=== PATIENT | male | born 1945 | race Caucasian/White ===

== ENCOUNTER 2017-01-24 07:00 | Inpatient (IN) ==
[~2017-01-24 07:00] MED LIST: DEXTROSE 50% 25 GM/50 ML VIAL IV PRN; GLUCAGON 1 MG VIAL IM PRN
[2017-01-24] MEDS: ALBUTEROL/IPRATROPIUM 3 ML NEB RESP TX SCH ×5 (08:30→19:55)
[2017-01-24 09:02] LABS: Basophils # 0.1 10*3/uL (0.0-0.2); Basophils % 0.6 % (0.0-0.8); Eosinophils # 0.2 10*3/uL (0.0-0.87); Eosinophils % 2.6 % (0.00-10.9); Hematocrit 44.9 VOL% (42.0-52.0); Hemoglobin 14.9 GM/DL (14.0-18.0); Immature Granulocytes % 0.5 %; Immature Granulocytes Absolute 0.04 #; Lymphocytes # 1.8 10*3/uL (1.4-4.0); Mean Corpuscular HGB Conc 33.2 GM/DL (32-36); Mean Corpuscular Hemoglobin 31 PG (27-34); Mean Corpuscular Volume 94.3 FL (87-102); Mean Platelet Volume 10.7 FL (9.6-12.0); Monocytes # 0.6 10*3/uL (0.11-0.8); Monocytes % 7.1 % (1.7-12.7); Neutrophils # 5.4 10*3/uL (1.4-7.4); Neutrophils % 67.2 % (38.7-73.9); Platelet Count 229 T/CUMM (130-400); Red Blood Count 4.76 MC/CUMM (3.8-5.5); Red Cell Distribution Width 13.9 % (9.3-17.3)
[2017-01-24 09:42] LABS: Albumin 3.8 G/DL (3.4-5.0); Bilirubin,Total 0.9 MG/DL (0.2-1.0); Calcium 8.9 MG/DL (8.5-10.1); Free T4 (Free Thyroxine) 0.97 NG/DL (0.76-1.46); Magnesium 2.1 MG/DL (1.8-2.4); Osmolality,Calculated 277.7 MOS/KG (273-304); Potassium 4.9 MMOL/L (3.5-5.1); Thyroid Stimulating Hormone 1.71 uIU/ml (0.358-3.74); Total Protein 7.2 G/DL (6.4-8.3)
[2017-01-24] MEDS ORDERED: MEROPENEM 1,000 MG in SYRINGE 1 EACH IV SCH (10:00)
[2017-01-24] MEDS: INSULIN REGULAR 100 UNIT/ML SUBCUT SCH ×4 (11:28→21:59)
[2017-01-24] MEDS: MEROPENEM 1,000 MG in SYRINGE 1 EACH IV SCH ×2 (11:40→20:12)
[2017-01-24] MEDS: AZITHROMYCIN 250 MG TABLET PO SCH (11:41)
[2017-01-24] MEDS: methylPREDNISolone SOD SUC 40 MG/1 ML VIAL IV SCH ×2 (11:41→22:02)
[2017-01-24] MEDS: BENZONATATE 100 MG CAPSULE PO SCH ×2 (11:41→22:02)
[2017-01-24] MEDS: SODIUM CHLORIDE 0.45% 1,000 ML IV SCH ×2 (11:42→11:43)
[2017-01-24] MEDS: DORNASE ALFA 2.5 MG/2.5 ML VIAL RESP TX SCH ×2 (12:16→20:02)
[2017-01-24] MEDS: PANTOPRAZOLE 40 MG TABLET PO SCH (13:08)
[2017-01-24] MEDS ORDERED: BENZONATATE 100 MG CAPSULE PO PRN (13:30)
[2017-01-24 15:24] LABS: Apearance,Urine CLEAR (Clear); Bilirubin,Urine Negative (Negative); Blood, Urine Negative (Negative); Glucose,Urine (UA) Negative (Negative); Ketones,Urine Negative (Negative); Mucus,Urine Occasional /LPF (Occasional); Nitrite,Urine Negative (Negative); Protein,Urine Negative; RBC,Urine <1 /HPF (0-4); Urine Color Yellow (Yellow); Urine Specific Gravity 1.016 (1.001-1.035); Urine Urobilinogen < 2.0 EU/DL (0.2-1.0); WBC,Urine 1 /HPF (0-6)
[2017-01-24] MEDS: FLUTICASONE/SALMETEROL 500-50 DISKUS 14 DOSE INH SCH (21:59)
[2017-01-24] MEDS: PRAVASTATIN 40 MG TABLET PO SCH (22:00)
[2017-01-24] MEDS: LISINOPRIL 2.5 MG TABLET PO SCH (22:00)
[2017-01-24] MEDS: MULTIVITAMIN (BEROCCA) TABLET PO SCH (22:01)
[2017-01-24] MEDS: MAGNESIUM CHLORIDE 64 MG TABLET PO SCH (22:01)
[2017-01-24] MEDS: MONTELUKAST 10 MG TABLET PO SCH (22:01)
[2017-01-24] MEDS: ASPIRIN EC 81 MG TABLET PO SCH (22:01)
[2017-01-24] MEDS: ASCORBIC ACID 500 MG TABLET PO SCH (22:01)
[2017-01-25] MEDS: ALBUTEROL/IPRATROPIUM 3 ML NEB RESP TX SCH ×4 (00:43→20:27)
[2017-01-25] MEDS: MEROPENEM 1,000 MG in SYRINGE 1 EACH IV SCH ×3 (04:43→21:03)
[2017-01-25] MEDS: SODIUM CHLORIDE 0.45% 1,000 ML IV SCH ×2 (04:43→21:04)
[2017-01-25] MEDS: DORNASE ALFA 2.5 MG/2.5 ML VIAL RESP TX SCH ×2 (07:49→20:41)
[2017-01-25] MEDS: INSULIN REGULAR 100 UNIT/ML SUBCUT SCH ×4 (08:38→21:06)
[2017-01-25] MEDS: AZITHROMYCIN 250 MG TABLET PO SCH (08:39)
[2017-01-25] MEDS: ASCORBIC ACID 500 MG TABLET PO SCH ×2 (08:39→21:07)
[2017-01-25] MEDS: DILTIAZEM CD 180 MG CAPSULE PO SCH (08:39)
[2017-01-25] MEDS: SPIRONOLACTONE 50 MG TABLET PO SCH (08:39)
[2017-01-25] MEDS: PANTOPRAZOLE 40 MG TABLET PO SCH (08:39)
[2017-01-25] MEDS: sitaGLIPtin 100 MG TABLET PO SCH (08:39)
[2017-01-25] MEDS: MAGNESIUM CHLORIDE 64 MG TABLET PO SCH ×2 (08:39→21:08)
[2017-01-25] MEDS: POTASSIUM CHLORIDE 10 MEQ TABLET PO SCH (08:39)
[2017-01-25] MEDS: MULTIVITAMIN (CENTRUM) TABLET PO SCH (08:39)
[2017-01-25] MEDS: BENZONATATE 100 MG CAPSULE PO SCH ×2 (08:39→21:09)
[2017-01-25] MEDS: methylPREDNISolone SOD SUC 40 MG/1 ML VIAL IV SCH ×2 (09:34→21:10)
[2017-01-25] MEDS: FLUTICASONE/SALMETEROL 500-50 DISKUS 14 DOSE INH SCH ×2 (09:35→21:09)
[2017-01-25] MEDS ORDERED: LIDOCAINE 100 MG/5 ML SYRINGE ONE (10:46)
[2017-01-25] MEDS ORDERED: PROPOFOL 200 MG/20 ML VIAL IV ONE (10:46)
[2017-01-25] MEDS: NYSTATIN 500,000 UNIT/5 ML UDCUP SWISH/SWAL SCH ×3 (15:48→21:09)
[2017-01-25] MEDS: ASPIRIN EC 81 MG TABLET PO SCH (21:08)
[2017-01-25] MEDS: LISINOPRIL 2.5 MG TABLET PO SCH (21:08)
[2017-01-25] MEDS: MONTELUKAST 10 MG TABLET PO SCH (21:08)
[2017-01-25] MEDS: MULTIVITAMIN (BEROCCA) TABLET PO SCH (21:08)
[2017-01-25] MEDS: PRAVASTATIN 40 MG TABLET PO SCH (21:08)
[2017-01-26] MEDS: ALBUTEROL/IPRATROPIUM 3 ML NEB RESP TX SCH ×4 (01:10→19:36)
[2017-01-26] MEDS: MEROPENEM 1,000 MG in SYRINGE 1 EACH IV SCH ×3 (05:00→20:13)
[2017-01-26] MEDS: DORNASE ALFA 2.5 MG/2.5 ML VIAL RESP TX SCH ×2 (07:25→19:36)
[2017-01-26] MEDS: MULTIVITAMIN (CENTRUM) TABLET PO SCH (08:55)
[2017-01-26] MEDS: MAGNESIUM CHLORIDE 64 MG TABLET PO SCH ×2 (08:55→20:14)
[2017-01-26] MEDS: NYSTATIN 500,000 UNIT/5 ML UDCUP SWISH/SWAL SCH ×4 (08:55→20:16)
[2017-01-26] MEDS: SPIRONOLACTONE 50 MG TABLET PO SCH (08:55)
[2017-01-26] MEDS: POTASSIUM CHLORIDE 10 MEQ TABLET PO SCH (08:56)
[2017-01-26] MEDS: BENZONATATE 100 MG CAPSULE PO SCH ×2 (08:56→20:14)
[2017-01-26] MEDS: ASCORBIC ACID 500 MG TABLET PO SCH ×2 (08:56→20:14)
[2017-01-26] MEDS: sitaGLIPtin 100 MG TABLET PO SCH (08:56)
[2017-01-26] MEDS: DILTIAZEM CD 180 MG CAPSULE PO SCH (08:56)
[2017-01-26] MEDS: PANTOPRAZOLE 40 MG TABLET PO SCH (08:56)
[2017-01-26] MEDS: FLUTICASONE/SALMETEROL 500-50 DISKUS 14 DOSE INH SCH ×2 (08:57→20:15)
[2017-01-26] MEDS: AZITHROMYCIN 250 MG TABLET PO SCH (08:57)
[2017-01-26] MEDS: INSULIN REGULAR 100 UNIT/ML SUBCUT SCH ×4 (08:57→20:15)
[2017-01-26] MEDS: methylPREDNISolone SOD SUC 40 MG/1 ML VIAL IV SCH ×3 (08:57→20:30)
[2017-01-26] MEDS: LISINOPRIL 2.5 MG TABLET PO SCH (20:14)
[2017-01-26] MEDS: ASPIRIN EC 81 MG TABLET PO SCH (20:14)
[2017-01-26] MEDS: MONTELUKAST 10 MG TABLET PO SCH (20:14)
[2017-01-26] MEDS: PRAVASTATIN 40 MG TABLET PO SCH (20:15)
[2017-01-26] MEDS: MULTIVITAMIN (BEROCCA) TABLET PO SCH (20:15)
[2017-01-27] MEDS: ALBUTEROL/IPRATROPIUM 3 ML NEB RESP TX SCH ×4 (00:42→19:19)
[2017-01-27] MEDS: MEROPENEM 1,000 MG in SYRINGE 1 EACH IV SCH ×3 (03:11→20:49)
[2017-01-27] MEDS: DORNASE ALFA 2.5 MG/2.5 ML VIAL RESP TX SCH ×2 (07:40→19:28)
[2017-01-27] MEDS: DILTIAZEM CD 180 MG CAPSULE PO SCH (08:31)
[2017-01-27] MEDS: methylPREDNISolone SOD SUC 40 MG/1 ML VIAL IV SCH ×2 (08:31→20:50)
[2017-01-27] MEDS: SPIRONOLACTONE 50 MG TABLET PO SCH (08:31)
[2017-01-27] MEDS: INSULIN REGULAR 100 UNIT/ML SUBCUT SCH ×4 (08:31→20:50)
[2017-01-27] MEDS: AZITHROMYCIN 250 MG TABLET PO SCH (08:32)
[2017-01-27] MEDS: NYSTATIN 500,000 UNIT/5 ML UDCUP SWISH/SWAL SCH ×4 (08:32→20:51)
[2017-01-27] MEDS: MULTIVITAMIN (CENTRUM) TABLET PO SCH (08:32)
[2017-01-27] MEDS: sitaGLIPtin 100 MG TABLET PO SCH (08:32)
[2017-01-27] MEDS: POTASSIUM CHLORIDE 10 MEQ TABLET PO SCH (08:53)
[2017-01-27] MEDS: PANTOPRAZOLE 40 MG TABLET PO SCH (08:54)
[2017-01-27] MEDS: MAGNESIUM CHLORIDE 64 MG TABLET PO SCH ×2 (08:54→20:51)
[2017-01-27] MEDS: BENZONATATE 100 MG CAPSULE PO SCH ×2 (08:55→20:51)
[2017-01-27] MEDS: FLUTICASONE/SALMETEROL 500-50 DISKUS 14 DOSE INH SCH ×2 (09:06→20:50)
[2017-01-27] MEDS: ASCORBIC ACID 500 MG TABLET PO SCH ×2 (09:06→20:51)
[2017-01-27] MEDS: LISINOPRIL 2.5 MG TABLET PO SCH (20:50)
[2017-01-27] MEDS: ASPIRIN EC 81 MG TABLET PO SCH (20:51)
[2017-01-27] MEDS: PRAVASTATIN 40 MG TABLET PO SCH (20:51)
[2017-01-27] MEDS: MONTELUKAST 10 MG TABLET PO SCH (20:51)
[2017-01-27] MEDS: MULTIVITAMIN (BEROCCA) TABLET PO SCH (20:51)
[2017-01-28] MEDS: ALBUTEROL/IPRATROPIUM 3 ML NEB RESP TX SCH ×4 (01:03→19:25)
[2017-01-28] MEDS: MEROPENEM 1,000 MG in SYRINGE 1 EACH IV SCH ×3 (03:11→22:16)
[2017-01-28 05:29] LABS: Basophils % 0.1 % (0.0-0.8); Hematocrit 43.3 VOL% (42.0-52.0); Hemoglobin 14.1 GM/DL (14.0-18.0); Lymphocytes # 0.9 10*3/uL (1.4-4.0); Lymphocytes % 9.3 % (21.2-54.2); Mean Corpuscular HGB Conc 32.6 GM/DL (32-36); Mean Corpuscular Hemoglobin 31 PG (27-34); Mean Corpuscular Volume 94.5 FL (87-102); Monocytes # 0.4 10*3/uL (0.11-0.8); Monocytes % 3.7 % (1.7-12.7); Neutrophils # 8.3 10*3/uL (1.4-7.4); Neutrophils % 85.9 % (38.7-73.9); Platelet Count 237 T/CUMM (130-400); Red Blood Count 4.58 MC/CUMM (3.8-5.5); Red Cell Distribution Width 14.6 % (9.3-17.3); White Blood Count 9.7 T/CUMM (4-12)
[2017-01-28 05:39] LABS: PT Patient Result 10.8 SECS; Partial Thromboplastin Time 26.4 SECS (0-40)
[2017-01-28] MEDS: DORNASE ALFA 2.5 MG/2.5 ML VIAL RESP TX SCH ×2 (07:27→19:25)
[2017-01-28] MEDS ORDERED: diphenhydrAMINE 50 MG/1 ML VIAL IM ONE (07:30)
[2017-01-28] MEDS ORDERED: MEPERIDINE 50 MG/1 ML VIAL IM ONE (07:30)
[2017-01-28] MEDS ORDERED: BENZONATATE 100 MG CAPSULE PO ONE (07:30)
[2017-01-28] MEDS ORDERED: LIDOCAINE 2% 20 ML VIAL RESP TX ONE (08:00)
[2017-01-28] MEDS ORDERED: LIDOCAINE 2% VISCOUS 100 ML BOTTLE SWISH/SPIT ONE (08:00)
[2017-01-28] MEDS ORDERED: LIDOCAINE 1% 20 ML VIAL MISC INJ ONE (08:00)
[2017-01-28] MEDS: INSULIN REGULAR 100 UNIT/ML SUBCUT SCH ×4 (09:31→22:13)
[2017-01-28] MEDS ORDERED: EPINEPHrine 1 MG/ML VIAL ET ONE (09:42)
[2017-01-28] MEDS: NYSTATIN 500,000 UNIT/5 ML UDCUP SWISH/SWAL SCH (10:59)
[2017-01-28] MEDS: methylPREDNISolone SOD SUC 40 MG/1 ML VIAL IV SCH ×2 (11:00→22:15)
[2017-01-28] MEDS: BENZONATATE 100 MG CAPSULE PO SCH ×2 (11:00→21:52)
[2017-01-28] MEDS ORDERED: EPINEPHrine 1 MG/ML VIAL ONE (11:38)
[2017-01-28] MEDS: ASCORBIC ACID 500 MG TABLET PO SCH ×2 (12:47→21:51)
[2017-01-28] MEDS: AZITHROMYCIN 250 MG TABLET PO SCH (12:47)
[2017-01-28] MEDS: MULTIVITAMIN (CENTRUM) TABLET PO SCH (12:47)
[2017-01-28] MEDS: POTASSIUM CHLORIDE 10 MEQ TABLET PO SCH (12:47)
[2017-01-28] MEDS: sitaGLIPtin 100 MG TABLET PO SCH (12:47)
[2017-01-28] MEDS: SPIRONOLACTONE 50 MG TABLET PO SCH (12:47)
[2017-01-28] MEDS: MAGNESIUM CHLORIDE 64 MG TABLET PO SCH ×2 (12:47→21:51)
[2017-01-28] MEDS: PANTOPRAZOLE 40 MG TABLET PO SCH (12:47)
[2017-01-28] MEDS: FLUTICASONE/SALMETEROL 500-50 DISKUS 14 DOSE INH SCH ×2 (12:48→22:22)
[2017-01-28] MEDS: DILTIAZEM CD 180 MG CAPSULE PO SCH (12:48)
[2017-01-28] MEDS: LISINOPRIL 2.5 MG TABLET PO SCH (21:51)
[2017-01-28] MEDS: ASPIRIN EC 81 MG TABLET PO SCH (21:51)
[2017-01-28] MEDS: PRAVASTATIN 40 MG TABLET PO SCH (21:52)
[2017-01-28] MEDS: MULTIVITAMIN (BEROCCA) TABLET PO SCH (21:52)
[2017-01-28] MEDS: MONTELUKAST 10 MG TABLET PO SCH (21:52)
[2017-01-29] MEDS: ALBUTEROL/IPRATROPIUM 3 ML NEB RESP TX SCH ×2 (00:04→07:43)
[2017-01-29] MEDS: MEROPENEM 1,000 MG in SYRINGE 1 EACH IV SCH ×2 (03:08→13:49)
[2017-01-29] MEDS: DORNASE ALFA 2.5 MG/2.5 ML VIAL RESP TX SCH (07:48)
[2017-01-29] MEDS: BENZONATATE 100 MG CAPSULE PO SCH (08:29)
[2017-01-29] MEDS: MULTIVITAMIN (CENTRUM) TABLET PO SCH (08:29)
[2017-01-29] MEDS: sitaGLIPtin 100 MG TABLET PO SCH (08:29)
[2017-01-29] MEDS: MAGNESIUM CHLORIDE 64 MG TABLET PO SCH (08:29)
[2017-01-29] MEDS: SPIRONOLACTONE 50 MG TABLET PO SCH (08:31)
[2017-01-29] MEDS: POTASSIUM CHLORIDE 10 MEQ TABLET PO SCH (08:31)
[2017-01-29] MEDS: methylPREDNISolone SOD SUC 40 MG/1 ML VIAL IV SCH (08:32)
[2017-01-29] MEDS: INSULIN REGULAR 100 UNIT/ML SUBCUT SCH ×2 (08:32→13:49)
[2017-01-29] MEDS: PANTOPRAZOLE 40 MG TABLET PO SCH (08:35)
[2017-01-29] MEDS: DILTIAZEM CD 180 MG CAPSULE PO SCH (08:35)
[2017-01-29] MEDS: ASCORBIC ACID 500 MG TABLET PO SCH (08:42)
[2017-01-29] MEDS: FLUTICASONE/SALMETEROL 500-50 DISKUS 14 DOSE INH SCH (09:13)
[2017-01-29] MEDS: AZITHROMYCIN 250 MG TABLET PO SCH (10:34)
[2017-01-29 11:04] VITALS: BP 123/64
== END 2017-01-29 13:30 | disposition home or self-care (01) | DRG 167 ==
LOC: N.5E 07:17
PROVIDERS: ADMIT Internal Medicine Pulmonary Disease; ATTEND Internal Medicine Pulmonary Disease

== ENCOUNTER 2018-04-15 21:50 | Inpatient (IN) ==
[2018-04-15] MEDS ORDERED: ADENOSINE 6 MG/2 ML VIAL IV STA (23:47)
[2018-04-15 23:51] LABS: Basophils % 0.3 % (0.0-0.8); Eosinophils # 0.3 10*3/uL (0.0-0.87); Eosinophils % 3.8 % (0.00-10.9); Hematocrit 47.5 VOL% (42.0-52.0); Hemoglobin 14.8 GM/DL (14.0-18.0); Immature Granulocytes % 0.5 %; Immature Granulocytes Absolute 0.04 #; Lymphocytes # 2.6 10*3/uL (1.4-4.0); Lymphocytes % 30.5 % (21.2-54.2); Mean Corpuscular HGB Conc 31.2 GM/DL (32-36); Mean Corpuscular Hemoglobin 31 PG (27-34); Mean Corpuscular Volume 98.1 FL (87-102); Mean Platelet Volume 10.7 FL (9.6-12.0); Monocytes # 0.6 10*3/uL (0.11-0.8); Monocytes % 7.3 % (1.7-12.7); Neutrophils % 57.6 % (38.7-73.9); Platelet Count 272 T/CUMM (130-400); Red Blood Count 4.84 MC/CUMM (3.8-5.5); Red Cell Distribution Width 14.1 % (9.3-17.3); White Blood Count 8.6 T/CUMM (4-12)
[2018-04-16] MEDS ORDERED: DILTIAZEM 50 MG/10 ML VIAL IV STA (00:09)
[2018-04-16 00:15] LABS: Alanine Aminotransferase 25 U/L (16-61); Alkaline Phosphatase 64 U/L (45-117); Aspartate Amino Transferase 22 U/L (0-37); Calcium 9.5 MG/DL (8.5-10.1)
[2018-04-16 00:16] LABS: Albumin 3.8 G/DL (3.4-5.0); Bilirubin,Total < 0.39 MG/DL (0.2-1.0); Blood Urea Nitrogen 15 MG/DL (7-18); Glucose 211 MG/DL (74-106); Osmolality,Calculated 276.1 MOS/KG (273-304); Potassium 4.9 MMOL/L (3.5-5.1); Sodium 135 MMOL/L (136-145); Total Protein 7.5 G/DL (6.4-8.3)
[2018-04-16] MEDS ORDERED: dilTIAZem Drip 125 MG/125 ML PREMIX IV SCH (00:30)
[2018-04-16] MEDS ORDERED: DOCUSATE SODIUM 100 MG CAPSULE PO PRN (02:12)
[2018-04-16] MEDS ORDERED: DEXTROSE 50% 25 GM/50 ML SYRINGE IV PRN (02:12)
[2018-04-16] MEDS ORDERED: ACETAMINOPHEN 325 MG TABLET PO PRN (02:12)
[2018-04-16] MEDS ORDERED: GLUCAGON 1 MG VIAL IM PRN (02:12)
[2018-04-16] MEDS ORDERED: ONDANSETRON 4 MG/2 ML VIAL IV PRN (02:12)
[2018-04-16] MEDS ORDERED: ENOXAPARIN 40 MG/0.4 ML SYRINGE SUBCUT SCH (02:30)
[2018-04-16] MEDS: LEVALBUTEROL 1.25 MG/3 ML NEB RESP TX SCH ×3 (04:19→19:27)
[2018-04-16 05:26] LABS: Basophils % 0.3 % (0.0-0.8); Eosinophils # 0.3 10*3/uL (0.0-0.87); Eosinophils % 3.6 % (0.00-10.9); Hematocrit 41.9 VOL% (42.0-52.0); Immature Granulocytes % 0.3 %; Immature Granulocytes Absolute 0.03 #; Lymphocytes # 3.3 10*3/uL (1.4-4.0); Lymphocytes % 36.2 % (21.2-54.2); Mean Corpuscular Hemoglobin 31 PG (27-34); Mean Corpuscular Volume 98.4 FL (87-102); Mean Platelet Volume 10.6 FL (9.6-12.0); Monocytes # 0.6 10*3/uL (0.11-0.8); Monocytes % 6.8 % (1.7-12.7); Neutrophils # 4.8 10*3/uL (1.4-7.4); Neutrophils % 52.8 % (38.7-73.9); Platelet Count 218 T/CUMM (130-400); Red Blood Count 4.26 MC/CUMM (3.8-5.5); Red Cell Distribution Width 14.2 % (9.3-17.3); White Blood Count 9.1 T/CUMM (4-12)
[2018-04-16 06:11] LABS: Calcium 8.6 MG/DL (8.5-10.1); Osmolality,Calculated 278.7 MOS/KG (273-304); Potassium 4.5 MMOL/L (3.5-5.1); Risk Ratio 4.19; Thyroid Stimulating Hormone 2.19 uIU/ml (0.358-3.74); VLDL CHOLESTEROL 41.2 MG/DL
[2018-04-16] MEDS ORDERED: ENOXAPARIN 60 MG/0.6 ML SYRINGE SUBCUT ONE (06:22)
[2018-04-16] MEDS: CLINDAMYCIN 300 MG CAPSULE PO SCH ×4 (06:40→23:46)
[2018-04-16] MEDS: cephALEXin 500 MG CAPSULE PO SCH ×4 (06:40→23:46)
[2018-04-16] MEDS: PANTOPRAZOLE 40 MG TABLET PO SCH (12:54)
[2018-04-16] MEDS: INSULIN REGULAR 100 UNIT/ML SUBCUT SCH ×3 (12:56→21:14)
[2018-04-16] MEDS ORDERED: NITROGLYCERIN SL 0.4 MG TABLET SL PRN (14:24)
[2018-04-16] MEDS: POTASSIUM CHLORIDE 20 MEQ TABLET PO SCH ×2 (15:03→21:14)
[2018-04-16] MEDS: ASPIRIN EC 81 MG TABLET PO SCH (15:03)
[2018-04-16] MEDS: MULTIVITAMIN (CENTRUM) TABLET PO SCH (15:03)
[2018-04-16] MEDS: ASCORBIC ACID 500 MG TABLET PO SCH ×2 (15:03→21:15)
[2018-04-16] MEDS: SPIRONOLACTONE 50 MG TABLET PO SCH (15:04)
[2018-04-16] MEDS: DILTIAZEM 60 MG TABLET PO SCH ×2 (16:29→21:14)
[2018-04-16] MEDS: METOPROLOL SUCCINATE XL 50 MG TABLET PO SCH (16:29)
[2018-04-16] MEDS: SODIUM CHLORIDE 0.9% 1,000 ML IV SCH ×2 (18:40→21:13)
[2018-04-16] MEDS: ENOXAPARIN 100 MG/ML SYRINGE SUBCUT SCH (18:41)
[2018-04-16] MEDS ORDERED: ALBUTEROL 2.5 MG/3 ML NEB RESP TX PRN (19:00)
[2018-04-16] MEDS ORDERED: Fluticasone/Vilanterol [Breo Ellipta 200-25 Mcg Inh] 1 PUFF INH SCH (21:00)
[2018-04-16] MEDS: ROSUVASTATIN 20 MG TABLET PO SCH (21:14)
[2018-04-16] MEDS: MAGNESIUM CHLORIDE 64 MG TABLET PO SCH (21:15)
[2018-04-16] MEDS: MONTELUKAST 10 MG TABLET PO SCH (21:15)
[2018-04-16] MEDS: ALBUTEROL/IPRATROPIUM 3 ML NEB RESP TX SCH (22:29)
[2018-04-17 05:09] LABS: Basophils # 0.1 10*3/uL (0.0-0.2); Basophils % 0.8 % (0.0-0.8); Eosinophils # 0.3 10*3/uL (0.0-0.87); Eosinophils % 4.6 % (0.00-10.9); Hematocrit 40.1 VOL% (42.0-52.0); Hemoglobin 12.3 GM/DL (14.0-18.0); Immature Granulocytes % 0.7 %; Immature Granulocytes Absolute 0.05 #; Lymphocytes # 2.5 10*3/uL (1.4-4.0); Lymphocytes % 35.6 % (21.2-54.2); Mean Corpuscular HGB Conc 30.7 GM/DL (32-36); Mean Corpuscular Hemoglobin 31 PG (27-34); Mean Corpuscular Volume 100.5 FL (87-102); Mean Platelet Volume 10.4 FL (9.6-12.0); Monocytes # 0.7 10*3/uL (0.11-0.8); Monocytes % 9.7 % (1.7-12.7); Neutrophils # 3.5 10*3/uL (1.4-7.4); Neutrophils % 48.6 % (38.7-73.9); Platelet Count 225 T/CUMM (130-400); Red Blood Count 3.99 MC/CUMM (3.8-5.5); Red Cell Distribution Width 14.4 % (9.3-17.3); White Blood Count 7.1 T/CUMM (4-12)
[2018-04-17 05:42] LABS: Calcium 8.3 MG/DL (8.5-10.1); Osmolality,Calculated 274.8 MOS/KG (273-304); Potassium 4.7 MMOL/L (3.5-5.1)
[2018-04-17] MEDS: SODIUM CHLORIDE 0.9% 1,000 ML IV SCH ×2 (07:09→23:51)
[2018-04-17] MEDS: ENOXAPARIN 100 MG/ML SYRINGE SUBCUT SCH ×2 (07:09→18:55)
[2018-04-17] MEDS: cephALEXin 500 MG CAPSULE PO SCH ×4 (07:21→23:50)
[2018-04-17] MEDS: CLINDAMYCIN 300 MG CAPSULE PO SCH ×2 (07:21→12:15)
[2018-04-17] MEDS: LEVALBUTEROL 1.25 MG/3 ML NEB RESP TX SCH ×2 (07:57→20:22)
[2018-04-17] MEDS ORDERED: diphenhydrAMINE CAP 25 MG CAPSULE PO ONE (09:22)
[2018-04-17] MEDS ORDERED: DIAZEPAM 5 MG TABLET PO ONE (09:22)
[2018-04-17] MEDS ORDERED: MAGNESIUM SULF RIDER 2 GM in PREMIX 1 EACH IV PRN (09:22)
[2018-04-17] MEDS ORDERED: POTASSIUM CHLORIDE RIDER 10 MEQ in PREMIX 1 EACH IV PRN (09:22)
[2018-04-17] MEDS: SPIRONOLACTONE 50 MG TABLET PO SCH (09:58)
[2018-04-17] MEDS: MAGNESIUM CHLORIDE 64 MG TABLET PO SCH ×2 (09:58→22:04)
[2018-04-17] MEDS: sitaGLIPtin 100 MG TABLET PO SCH (09:58)
[2018-04-17] MEDS: ASCORBIC ACID 500 MG TABLET PO SCH ×2 (09:59→22:05)
[2018-04-17] MEDS: POTASSIUM CHLORIDE 20 MEQ TABLET PO SCH ×2 (09:59→22:05)
[2018-04-17] MEDS: PANTOPRAZOLE 40 MG TABLET PO SCH (09:59)
[2018-04-17] MEDS: MULTIVITAMIN (CENTRUM) TABLET PO SCH (09:59)
[2018-04-17] MEDS: TAMSULOSIN 0.4 MG CAPSULE PO SCH (09:59)
[2018-04-17] MEDS: DILTIAZEM 60 MG TABLET PO SCH ×4 (09:59→22:04)
[2018-04-17] MEDS: METOPROLOL SUCCINATE XL 50 MG TABLET PO SCH (09:59)
[2018-04-17] MEDS: ASPIRIN EC 81 MG TABLET PO SCH (09:59)
[2018-04-17] MEDS: INSULIN REGULAR 100 UNIT/ML SUBCUT SCH ×4 (11:10→21:06)
[2018-04-17] MEDS: ALBUTEROL/IPRATROPIUM 3 ML NEB RESP TX SCH ×2 (13:40→20:22)
[2018-04-17 18:08] LABS: Apearance,Urine CLEAR (Clear); Bilirubin,Urine Negative (Negative); Blood, Urine Negative (Negative); Glucose,Urine (UA) Negative (Negative); Ketones,Urine Negative (Negative); Nitrite,Urine Negative (Negative); Protein,Urine Negative; RBC,Urine 3 /HPF (0-4); Urine Color Yellow (Yellow); Urine Specific Gravity 1.013 (1.001-1.035); Urine Urobilinogen < 2.0 EU/DL (0.2-1.0); WBC,Urine 1 /HPF (0-6)
[2018-04-17] MEDS: MONTELUKAST 10 MG TABLET PO SCH (22:04)
[2018-04-17] MEDS: ROSUVASTATIN 20 MG TABLET PO SCH (22:06)
[2018-04-18 05:23] LABS: Basophils % 0.5 % (0.0-0.8); Eosinophils # 0.3 10*3/uL (0.0-0.87); Eosinophils % 4.8 % (0.00-10.9); Hematocrit 39.7 VOL% (42.0-52.0); Hemoglobin 12.3 GM/DL (14.0-18.0); Immature Granulocytes % 0.3 %; Immature Granulocytes Absolute 0.02 #; Lymphocytes # 2.3 10*3/uL (1.4-4.0); Lymphocytes % 37.2 % (21.2-54.2); Mean Corpuscular Hemoglobin 31 PG (27-34); Mean Corpuscular Volume 100.5 FL (87-102); Monocytes # 0.6 10*3/uL (0.11-0.8); Monocytes % 10.2 % (1.7-12.7); Neutrophils # 2.9 10*3/uL (1.4-7.4); Platelet Count 228 T/CUMM (130-400); Red Blood Count 3.95 MC/CUMM (3.8-5.5); Red Cell Distribution Width 14.3 % (9.3-17.3); White Blood Count 6.1 T/CUMM (4-12)
[2018-04-18 05:42] LABS: Calcium 8.5 MG/DL (8.5-10.1); Osmolality,Calculated 280.4 MOS/KG (273-304); Potassium 4.7 MMOL/L (3.5-5.1)
[2018-04-18] MEDS: ENOXAPARIN 100 MG/ML SYRINGE SUBCUT SCH ×2 (05:57→17:38)
[2018-04-18] MEDS: cephALEXin 500 MG CAPSULE PO SCH ×3 (05:57→17:38)
[2018-04-18] MEDS: LEVALBUTEROL 1.25 MG/3 ML NEB RESP TX SCH (08:01)
[2018-04-18] MEDS: INSULIN REGULAR 100 UNIT/ML SUBCUT SCH ×4 (08:34→21:25)
[2018-04-18] MEDS: DILTIAZEM 60 MG TABLET PO SCH ×4 (08:35→21:24)
[2018-04-18] MEDS: MULTIVITAMIN (CENTRUM) TABLET PO SCH (08:35)
[2018-04-18] MEDS: SPIRONOLACTONE 50 MG TABLET PO SCH (08:36)
[2018-04-18] MEDS: sitaGLIPtin 100 MG TABLET PO SCH (08:37)
[2018-04-18] MEDS: POTASSIUM CHLORIDE 20 MEQ TABLET PO SCH ×2 (08:37→21:24)
[2018-04-18] MEDS: ASCORBIC ACID 500 MG TABLET PO SCH ×2 (08:37→21:24)
[2018-04-18] MEDS: TAMSULOSIN 0.4 MG CAPSULE PO SCH (08:37)
[2018-04-18] MEDS: ASPIRIN EC 81 MG TABLET PO SCH (08:37)
[2018-04-18] MEDS: SODIUM CHLORIDE 0.9% 1,000 ML IV SCH ×2 (08:38→21:26)
[2018-04-18] MEDS: METOPROLOL SUCCINATE XL 50 MG TABLET PO SCH (08:38)
[2018-04-18] MEDS: PANTOPRAZOLE 40 MG TABLET PO SCH (08:38)
[2018-04-18] MEDS: MAGNESIUM CHLORIDE 64 MG TABLET PO SCH ×2 (09:15→21:24)
[2018-04-18] MEDS ORDERED: DIAZEPAM 5 MG TABLET PO ONE (11:30)
[2018-04-18] MEDS ORDERED: diphenhydrAMINE CAP 25 MG CAPSULE PO ONE (11:30)
[2018-04-18] MEDS: ALBUTEROL/IPRATROPIUM 3 ML NEB RESP TX SCH ×2 (11:35→20:30)
[2018-04-18] MEDS ORDERED: HEPARIN/NACL 0.9% 2 UNITS/ML 1,000 ML IV ONE (13:11)
[2018-04-18] MEDS ORDERED: LIDOCAINE 1%/EPI INJ 20 ML VIAL ONE (13:28)
[2018-04-18] MEDS ORDERED: fentaNYL 100 MCG/2 ML VIAL ONE (13:36)
[2018-04-18] MEDS ORDERED: MIDAZOLAM 2 MG/2 ML VIAL ONE (13:36)
[2018-04-18] MEDS: MONTELUKAST 10 MG TABLET PO SCH (21:24)
[2018-04-18] MEDS: ROSUVASTATIN 20 MG TABLET PO SCH (22:57)
[2018-04-19] MEDS: cephALEXin 500 MG CAPSULE PO SCH ×2 (00:48→06:22)
[2018-04-19] MEDS: SODIUM CHLORIDE 0.9% 1,000 ML IV SCH (02:32)
[2018-04-19 05:05] LABS: Basophils # 0.1 10*3/uL (0.0-0.2); Basophils % 0.9 % (0.0-0.8); Eosinophils # 0.3 10*3/uL (0.0-0.87); Eosinophils % 4.4 % (0.00-10.9); Hematocrit 38.7 VOL% (42.0-52.0); Immature Granulocytes % 0.4 %; Immature Granulocytes Absolute 0.03 #; Lymphocytes % 29.6 % (21.2-54.2); Mean Corpuscular Hemoglobin 31 PG (27-34); Mean Corpuscular Volume 99.5 FL (87-102); Mean Platelet Volume 10.8 FL (9.6-12.0); Monocytes # 0.6 10*3/uL (0.11-0.8); Monocytes % 8.6 % (1.7-12.7); Neutrophils # 3.8 10*3/uL (1.4-7.4); Neutrophils % 56.1 % (38.7-73.9); Platelet Count 236 T/CUMM (130-400); Red Blood Count 3.89 MC/CUMM (3.8-5.5); Red Cell Distribution Width 14.5 % (9.3-17.3); White Blood Count 6.8 T/CUMM (4-12)
[2018-04-19 05:11] LABS: Calcium 7.9 MG/DL (8.5-10.1); Osmolality,Calculated 278.4 MOS/KG (273-304); Potassium 4.4 MMOL/L (3.5-5.1)
[2018-04-19] MEDS: ENOXAPARIN 100 MG/ML SYRINGE SUBCUT SCH (06:31)
[2018-04-19] MEDS: ALBUTEROL/IPRATROPIUM 3 ML NEB RESP TX SCH (07:00)
[2018-04-19] MEDS: INSULIN REGULAR 100 UNIT/ML SUBCUT SCH (07:14)
[2018-04-19] MEDS: DILTIAZEM 60 MG TABLET PO SCH (08:32)
[2018-04-19] MEDS: SPIRONOLACTONE 50 MG TABLET PO SCH (08:32)
[2018-04-19] MEDS: MULTIVITAMIN (CENTRUM) TABLET PO SCH (08:33)
[2018-04-19] MEDS: MAGNESIUM CHLORIDE 64 MG TABLET PO SCH (08:33)
[2018-04-19] MEDS: METOPROLOL SUCCINATE XL 50 MG TABLET PO SCH (08:33)
[2018-04-19] MEDS: ASPIRIN EC 81 MG TABLET PO SCH (08:33)
[2018-04-19] MEDS: sitaGLIPtin 100 MG TABLET PO SCH (08:33)
[2018-04-19] MEDS: POTASSIUM CHLORIDE 20 MEQ TABLET PO SCH (08:33)
[2018-04-19] MEDS: PANTOPRAZOLE 40 MG TABLET PO SCH (08:33)
[2018-04-19] MEDS: ASCORBIC ACID 500 MG TABLET PO SCH (08:33)
[2018-04-19] MEDS: TAMSULOSIN 0.4 MG CAPSULE PO SCH (08:34)
[2018-04-19 08:36] VITALS: BP 104/66
== END 2018-04-19 11:55 | disposition home or self-care (01) | DRG 281 ==
LOC: N.ED 21:50 → N.EDINP 21:50 → N.TELEN 04-16 02:37 → SUATTDRO 04-16 10:08
PROVIDERS: ADMIT Internal Medicine; ATTEND Internal Medicine

== ENCOUNTER 2019-06-10 01:00 | Inpatient (IN) ==
[2019-06-10] MEDS ORDERED: PANTOPRAZOLE 40 MG VIAL IV ONE (01:21)
[2019-06-10] MEDS ORDERED: ONDANSETRON 4 MG/2 ML VIAL IV STA (01:22)
[2019-06-10] MEDS ORDERED: PANTOPRAZOLE 40 MG VIAL IV STA (01:22)
[2019-06-10] MEDS ORDERED: SODIUM CHLORIDE 0.9% 500 ML IV STA ×2 (01:22→02:04)
[2019-06-10 01:34] LABS: Basophils # 0.1 10*3/uL (0.0-0.2); Basophils % 0.4 % (0.0-0.8); Eosinophils # 0.3 10*3/uL (0.0-0.87); Eosinophils % 1.1 % (0.00-10.9); Hematocrit 40.2 VOL% (42.0-52.0); Hemoglobin 11.8 GM/DL (14.0-18.0); Immature Granulocytes Absolute 0.23 #; Lymphocytes # 4.3 10*3/uL (1.4-4.0); Lymphocytes % 18.7 % (21.2-54.2); Mean Corpuscular HGB Conc 29.4 GM/DL (32-36); Mean Corpuscular Volume 100.2 FL (87-102); Mean Platelet Volume 10.2 FL (9.6-12.0); Monocytes % 5.3 % (1.7-12.7); Neutrophils % 73.5 % (38.7-73.9); Platelet Count 331 T/CUMM (130-400); Red Blood Count 4.01 MC/CUMM (3.8-5.5); Red Cell Distribution Width 14.6 % (9.3-17.3); White Blood Count 22.7 T/CUMM (4-12)
[2019-06-10 01:39] LABS: PT Patient Result 10.7 SECS (9.6-12.2)
[2019-06-10 01:51] LABS: Alanine Aminotransferase 16 U/L (16-61); Alkaline Phosphatase 47 U/L (45-117); Amylase 12 U/L (25-115); Aspartate Amino Transferase 7 U/L (0-37); Bilirubin,Total < 0.39 MG/DL (0.2-1.0); Blood Urea Nitrogen 21 MG/DL (7-18); Calcium 8.5 MG/DL (8.5-10.1); Estimated Glom Filtration Rate 41 ML/MIN; Glucose 333 MG/DL (74-106); Osmolality,Calculated 285.1 MOS/KG (273-304); Total Protein 6.1 G/DL (6.4-8.3); Troponin I < 0.015 NG/ML (0.00-0.045)
[2019-06-10] MEDS ORDERED: CALCIUM CHLORIDE 1,000 MG/10 ML SYRINGE IV STA (02:03)
[2019-06-10] MEDS ORDERED: SODIUM CHLORIDE 0.9% 1,000 ML IV STA (02:04)
[2019-06-10] MEDS ORDERED: SODIUM CHLORIDE 0.9% 1,000 ML IV PRN ×2 (02:24→03:19)
[2019-06-10] MEDS ORDERED: ONDANSETRON 4 MG/2 ML VIAL IV PRN (03:19)
[2019-06-10] MEDS ORDERED: ACETAMINOPHEN 325 MG TABLET PO PRN (03:19)
[2019-06-10] MEDS ORDERED: DEXTROSE 50% 25 GM/50 ML SYRINGE IV PRN (03:19)
[2019-06-10] MEDS ORDERED: GLUCAGON 1 MG VIAL IM PRN (03:19)
[2019-06-10] MEDS ORDERED: ALBUTEROL 2.5 MG/3 ML NEB RESP TX PRN (03:19)
[2019-06-10 03:35] LABS: Band Neutrophils 7 % (0-10); Eosinophils 2 % (0-10); Lymphocytes 18 % (20-55); Platelet Estimate Normal; Segmented Neutrophils 66 % (50-85); Total Cells Counted 100
[2019-06-10 03:36] LABS: Hypochromasia Slight
[2019-06-10 03:54] LABS: Hematocrit 27.5 VOL% (42.0-52.0); Hemoglobin 8.5 GM/DL (14.0-18.0)
[2019-06-10] MEDS: SODIUM CHLORIDE 0.9% 1,000 ML IV SCH ×3 (04:04→18:15)
[2019-06-10] MEDS ORDERED: PROMETHAZINE 25 MG/1 ML VIAL IM PRN (04:58)
[2019-06-10 05:55] LABS: Albumin 2.5 G/DL (3.4-5.0); Bilirubin,Total 1.1 MG/DL (0.2-1.0); Calcium 8.4 MG/DL (8.5-10.1); Hemoglobin 9.4 GM/DL (14.0-18.0); Osmolality,Calculated 288.8 MOS/KG (273-304)
[2019-06-10] MEDS: INSULIN REGULAR 100 UNIT/ML SUBCUT SCH ×4 (06:59→21:30)
[2019-06-10] MEDS: PANTOPRAZOLE 40 MG VIAL IV SCH ×2 (08:51→21:29)
[2019-06-10 09:16] LABS: Hematocrit 35.4 VOL% (42.0-52.0)
[2019-06-10 15:02] LABS: Hematocrit 31.7 VOL% (42.0-52.0); Hemoglobin 10.1 GM/DL (14.0-18.0)
[2019-06-10] MEDS: ALBUTEROL 1.25 MG/3 ML NEB RESP TX SCH ×2 (17:07→19:57)
[2019-06-10 20:45] LABS: Hematocrit 29.1 VOL% (42.0-52.0)
[2019-06-10] MEDS: DILTIAZEM CD 180 MG CAPSULE PO SCH (21:27)
[2019-06-10] MEDS: METOPROLOL TARTRATE 50 MG TABLET PO SCH (21:27)
[2019-06-11] MEDS: ALBUTEROL 1.25 MG/3 ML NEB RESP TX SCH ×4 (00:52→19:25)
[2019-06-11] MEDS: SODIUM CHLORIDE 0.9% 1,000 ML IV SCH ×3 (01:24→20:37)
[2019-06-11 06:00] LABS: Basophils % 0.3 % (0.0-0.8); Eosinophils # 0.1 10*3/uL (0.0-0.87); Eosinophils % 1.4 % (0.00-10.9); Hematocrit 25.8 VOL% (42.0-52.0); Hemoglobin 8.1 GM/DL (14.0-18.0); Immature Granulocytes % 0.9 %; Immature Granulocytes Absolute 0.09 #; Lymphocytes # 2.6 10*3/uL (1.4-4.0); Lymphocytes % 26.2 % (21.2-54.2); Mean Corpuscular HGB Conc 31.4 GM/DL (32-36); Mean Corpuscular Volume 95.9 FL (87-102); Mean Platelet Volume 10.2 FL (9.6-12.0); Neutrophils % 64.2 % (38.7-73.9); Platelet Count 176 T/CUMM (130-400); Red Blood Count 2.69 MC/CUMM (3.8-5.5); Red Cell Distribution Width 15.4 % (9.3-17.3); White Blood Count 9.7 T/CUMM (4-12)
[2019-06-11 06:38] LABS: Calcium 7.7 MG/DL (8.5-10.1); Osmolality,Calculated 278.7 MOS/KG (273-304)
[2019-06-11] MEDS: INSULIN REGULAR 100 UNIT/ML SUBCUT SCH ×4 (08:18→20:37)
[2019-06-11 09:04] LABS: Hemoglobin 7.6 GM/DL (14.0-18.0)
[2019-06-11] MEDS: METOPROLOL TARTRATE 50 MG TABLET PO SCH (09:44)
[2019-06-11] MEDS: PANTOPRAZOLE 40 MG VIAL IV SCH ×2 (09:45→20:36)
[2019-06-11] MEDS: DILTIAZEM CD 180 MG CAPSULE PO SCH (09:54)
[2019-06-11] MEDS ORDERED: FERRIC GLUCONATE COMPLEX 125 MG in SODIUM CHLORIDE 0.9% 100 ML IV ONE (12:30)
[2019-06-11] MEDS: ASCORBIC ACID 500 MG TABLET PO SCH (20:37)
[2019-06-11] MEDS: MONTELUKAST 10 MG TABLET PO SCH (20:37)
[2019-06-12] MEDS: ALBUTEROL 1.25 MG/3 ML NEB RESP TX SCH ×4 (01:20→19:55)
[2019-06-12] MEDS: SPIRONOLACTONE 50 MG TABLET PO SCH (02:48)
[2019-06-12 05:25] LABS: Basophils % 0.3 % (0.0-0.8); Eosinophils # 0.1 10*3/uL (0.0-0.87); Eosinophils % 1.9 % (0.00-10.9); Hematocrit 21.1 VOL% (42.0-52.0); Hemoglobin 6.6 GM/DL (14.0-18.0); Immature Granulocytes % 1.1 %; Immature Granulocytes Absolute 0.08 #; Lymphocytes # 1.7 10*3/uL (1.4-4.0); Mean Corpuscular HGB Conc 31.3 GM/DL (32-36); Mean Platelet Volume 10.3 FL (9.6-12.0); Monocytes % 7.1 % (1.7-12.7); Neutrophils % 66.6 % (38.7-73.9); Platelet Count 146 T/CUMM (130-400); Red Blood Count 2.22 MC/CUMM (3.8-5.5); Red Cell Distribution Width 15.3 % (9.3-17.3); White Blood Count 7.4 T/CUMM (4-12)
[2019-06-12] MEDS: SODIUM CHLORIDE 0.9% 1,000 ML IV SCH (05:38)
[2019-06-12 05:53] LABS: Calcium 7.5 MG/DL (8.5-10.1); Osmolality,Calculated 280.4 MOS/KG (273-304)
[2019-06-12] MEDS: INSULIN REGULAR 100 UNIT/ML SUBCUT SCH ×4 (07:50→20:06)
[2019-06-12] MEDS: DILTIAZEM CD 180 MG CAPSULE PO SCH ×2 (07:53→08:44)
[2019-06-12] MEDS: TAMSULOSIN 0.4 MG CAPSULE PO SCH ×2 (07:53→08:45)
[2019-06-12] MEDS: ASCORBIC ACID 500 MG TABLET PO SCH ×3 (07:53→20:06)
[2019-06-12] MEDS: PANTOPRAZOLE 40 MG VIAL IV SCH ×3 (07:54→20:06)
[2019-06-12] MEDS: COENZYME Q10 100 MG CAPSULE PO SCH ×2 (07:54→08:45)
[2019-06-12] MEDS: MULTIVITAMIN (CENTRUM) TABLET PO SCH ×2 (07:54→08:44)
[2019-06-12] MEDS: METOPROLOL TARTRATE 50 MG TABLET PO SCH (08:45)
[2019-06-12] MEDS ORDERED: DILTIAZEM HCL 360 MG PO SCH (09:00)
[2019-06-12] MEDS: Fluticasone Furoate-Vilanterol [Breo Ellipta] INH SCH (09:20)
[2019-06-12 10:26] LABS: Hematocrit 22.6 VOL% (42.0-52.0)
[2019-06-12] MEDS ORDERED: SODIUM CHLORIDE 0.9% 1,000 ML IV PRN ×2 (11:11→11:12)
[2019-06-12 17:44] LABS: Hematocrit 27.3 VOL% (42.0-52.0); Hemoglobin 8.3 GM/DL (14.0-18.0)
[2019-06-12] MEDS: MONTELUKAST 10 MG TABLET PO SCH (20:06)
[2019-06-13] MEDS: ALBUTEROL 1.25 MG/3 ML NEB RESP TX SCH ×4 (00:35→19:17)
[2019-06-13 04:39] LABS: Basophils % 0.4 % (0.0-0.8); Eosinophils # 0.2 10*3/uL (0.0-0.87); Eosinophils % 2.5 % (0.00-10.9); Hematocrit 24.8 VOL% (42.0-52.0); Hemoglobin 7.6 GM/DL (14.0-18.0); Immature Granulocytes % 0.6 %; Immature Granulocytes Absolute 0.04 #; Lymphocytes # 1.9 10*3/uL (1.4-4.0); Lymphocytes % 27.7 % (21.2-54.2); Mean Corpuscular HGB Conc 30.6 GM/DL (32-36); Mean Corpuscular Volume 98.4 FL (87-102); Mean Platelet Volume 9.9 FL (9.6-12.0); Monocytes % 6.6 % (1.7-12.7); Neutrophils % 62.2 % (38.7-73.9); Platelet Count 153 T/CUMM (130-400); Red Blood Count 2.52 MC/CUMM (3.8-5.5); Red Cell Distribution Width 15.4 % (9.3-17.3); White Blood Count 6.9 T/CUMM (4-12)
[2019-06-13 05:30] LABS: Calcium 8.3 MG/DL (8.5-10.1); Osmolality,Calculated 275.7 MOS/KG (273-304)
[2019-06-13] MEDS: INSULIN REGULAR 100 UNIT/ML SUBCUT SCH ×4 (08:31→21:02)
[2019-06-13] MEDS: SPIRONOLACTONE 50 MG TABLET PO SCH (09:29)
[2019-06-13] MEDS: ASCORBIC ACID 500 MG TABLET PO SCH ×2 (09:30→21:02)
[2019-06-13] MEDS: DILTIAZEM CD 180 MG CAPSULE PO SCH (09:30)
[2019-06-13] MEDS: COENZYME Q10 100 MG CAPSULE PO SCH (09:30)
[2019-06-13] MEDS: METOPROLOL TARTRATE 50 MG TABLET PO SCH (09:31)
[2019-06-13] MEDS: MULTIVITAMIN (CENTRUM) TABLET PO SCH (09:31)
[2019-06-13] MEDS: PANTOPRAZOLE 40 MG VIAL IV SCH ×2 (09:31→21:02)
[2019-06-13] MEDS: TAMSULOSIN 0.4 MG CAPSULE PO SCH (09:31)
[2019-06-13] MEDS: Fluticasone Furoate-Vilanterol [Breo Ellipta] INH SCH (10:44)
[2019-06-13] MEDS ORDERED: SIMVASTATIN 20 MG TABLET PO SCH (21:00)
[2019-06-13] MEDS: MONTELUKAST 10 MG TABLET PO SCH (21:02)
[2019-06-14] MEDS: ALBUTEROL 1.25 MG/3 ML NEB RESP TX SCH ×2 (00:59→07:27)
[2019-06-14 05:14] LABS: Basophils % 0.4 % (0.0-0.8); Eosinophils # 0.2 10*3/uL (0.0-0.87); Eosinophils % 2.8 % (0.00-10.9); Hematocrit 24.6 VOL% (42.0-52.0); Hemoglobin 7.8 GM/DL (14.0-18.0); Immature Granulocytes % 0.4 %; Immature Granulocytes Absolute 0.03 #; Lymphocytes # 1.7 10*3/uL (1.4-4.0); Lymphocytes % 23.4 % (21.2-54.2); Mean Corpuscular HGB Conc 31.7 GM/DL (32-36); Mean Corpuscular Volume 95.3 FL (87-102); Monocytes % 7.6 % (1.7-12.7); Neutrophils % 65.4 % (38.7-73.9); Platelet Count 178 T/CUMM (130-400); Red Blood Count 2.58 MC/CUMM (3.8-5.5); Red Cell Distribution Width 15.5 % (9.3-17.3); White Blood Count 7.1 T/CUMM (4-12)
[2019-06-14] MEDS: INSULIN REGULAR 100 UNIT/ML SUBCUT SCH (08:32)
[2019-06-14] MEDS: COENZYME Q10 100 MG CAPSULE PO SCH (08:33)
[2019-06-14] MEDS: PANTOPRAZOLE 40 MG VIAL IV SCH (08:33)
[2019-06-14] MEDS: METOPROLOL TARTRATE 50 MG TABLET PO SCH (08:33)
[2019-06-14] MEDS: SPIRONOLACTONE 50 MG TABLET PO SCH (08:33)
[2019-06-14] MEDS: TAMSULOSIN 0.4 MG CAPSULE PO SCH (08:33)
[2019-06-14] MEDS: ASCORBIC ACID 500 MG TABLET PO SCH (08:33)
[2019-06-14] MEDS: Fluticasone Furoate-Vilanterol [Breo Ellipta] INH SCH (08:33)
[2019-06-14] MEDS: MULTIVITAMIN (CENTRUM) TABLET PO SCH (08:33)
[2019-06-14] MEDS: DILTIAZEM CD 180 MG CAPSULE PO SCH (08:33)
[2019-06-14 09:43] VITALS: BP 107/51
== END 2019-06-14 11:46 | disposition home or self-care (01) | DRG 377 ==
LOC: EDBD → EDUNIT# → N.ED 01:00 → SUATTDRO 03:19 → N.EDINP 03:19 → N.CC 03:38 → N.5E 13:29
PROVIDERS: ADMIT Internal Medicine; ATTEND Internal Medicine

== ENCOUNTER 2019-08-02 09:18 | Inpatient (IN) ==
[2019-08-02 10:20] LABS: Basophils # 0.1 10*3/uL (0.0-0.2); Basophils % 0.5 % (0.0-0.8); Eosinophils # 0.2 10*3/uL (0.0-0.87); Eosinophils % 2.2 % (0.00-10.9); Hematocrit 38.7 VOL% (42.0-52.0); Hemoglobin 11.6 GM/DL (14.0-18.0); Immature Granulocytes % 0.4 %; Immature Granulocytes Absolute 0.04 #; Lymphocytes # 2.4 10*3/uL (1.4-4.0); Lymphocytes % 24.2 % (21.2-54.2); Mean Corpuscular Volume 95.8 FL (87-102); Mean Platelet Volume 10.3 FL (9.6-12.0); Monocytes % 8.4 % (1.7-12.7); Neutrophils % 64.3 % (38.7-73.9); Platelet Count 304 T/CUMM (130-400); Red Blood Count 4.04 MC/CUMM (3.8-5.5); Red Cell Distribution Width 16.3 % (9.3-17.3); White Blood Count 9.8 T/CUMM (4-12)
[2019-08-02 10:29] LABS: PT Patient Result 10.7 SECS (9.8-11.9); Partial Thromboplastin Time 27.9 SECS (23.9-33.8)
[2019-08-02 10:33] LABS: Albumin 3.6 G/DL (3.4-5.0); Bilirubin,Total 0.4 MG/DL (0.2-1.0); Osmolality,Calculated 275.1 MOS/KG (273-304); Total Protein 7.4 G/DL (6.4-8.3)
[2019-08-02] MEDS ORDERED: SODIUM CHLORIDE 0.9% 1,000 ML IV STA (11:19)
[2019-08-02] MEDS ORDERED: DEXTROSE 50% 25 GM/50 ML VIAL IV PRN (12:33)
[2019-08-02] MEDS ORDERED: GLUCAGON 1 MG VIAL IM PRN ×2 (12:33→13:34)
[2019-08-02] MEDS ORDERED: ALBUTEROL 2.5 MG/3 ML NEB RESP TX PRN (13:17)
[2019-08-02] MEDS ORDERED: PANTOPRAZOLE 40 MG VIAL IV ONE (13:33)
[2019-08-02] MEDS ORDERED: DEXTROSE 10% 250 ML BAG IV PRN (13:34)
[2019-08-02] MEDS: SODIUM CHLORIDE 0.9% 1,000 ML IV SCH (14:15)
[2019-08-02] MEDS: ONDANSETRON 4 MG/2 ML VIAL IV PRN ×2 (15:25→21:13)
[2019-08-02] MEDS: INSULIN LISPRO 100 UNIT/ML SUBCUT SCH ×2 (15:33→22:42)
[2019-08-02] MEDS ORDERED: MAGNESIUM CITRATE 300 ML BOTTLE PO ONE (17:00)
[2019-08-02] MEDS ORDERED: SODIUM CHLORIDE 0.9% 250 ML IV ONE (17:07)
[2019-08-02] MEDS ORDERED: SODIUM CHLORIDE 0.9% 1,000 ML IV PRN (17:15)
[2019-08-02 17:33] LABS: Hematocrit 27.7 VOL% (42.0-52.0)
[2019-08-02 17:34] LABS: Hemoglobin 8.1 GM/DL (14.0-18.0)
[2019-08-02] MEDS: ALBUTEROL 2.5 MG/3 ML NEB RESP TX SCH (19:23)
[2019-08-02 22:12] LABS: Hematocrit 23.6 VOL% (42.0-52.0); Hemoglobin 7.2 GM/DL (14.0-18.0)
[2019-08-02] MEDS: ASCORBIC ACID 500 MG TABLET PO SCH (22:41)
[2019-08-02] MEDS: MAGNESIUM CHLORIDE 64 MG TABLET PO SCH (22:41)
[2019-08-02] MEDS: TAMSULOSIN 0.4 MG CAPSULE PO SCH (22:41)
[2019-08-02] MEDS: MONTELUKAST 10 MG TABLET PO SCH (22:41)
[2019-08-02] MEDS: FLUTICASONE FUROATE VILANTEROL INH SCH (22:42)
[2019-08-03] MEDS: ONDANSETRON 4 MG/2 ML VIAL IV PRN (01:15)
[2019-08-03] MEDS: SODIUM CHLORIDE 0.9% 1,000 ML IV SCH (04:06)
[2019-08-03] MEDS: ALBUTEROL 2.5 MG/3 ML NEB RESP TX SCH ×2 (07:19→19:29)
[2019-08-03 07:46] LABS: Basophils # 0.1 10*3/uL (0.0-0.2); Basophils % 0.5 % (0.0-0.8); Eosinophils # 0.1 10*3/uL (0.0-0.87); Eosinophils % 1.1 % (0.00-10.9); Hematocrit 21.7 VOL% (42.0-52.0); Hemoglobin 6.5 GM/DL (14.0-18.0); Immature Granulocytes % 0.6 %; Immature Granulocytes Absolute 0.06 #; Lymphocytes # 2.7 10*3/uL (1.4-4.0); Lymphocytes % 24.9 % (21.2-54.2); Mean Corpuscular Volume 95.2 FL (87-102); Mean Platelet Volume 10.3 FL (9.6-12.0); Monocytes % 6.5 % (1.7-12.7); Neutrophils % 66.4 % (38.7-73.9); Platelet Count 224 T/CUMM (130-400); Red Blood Count 2.28 MC/CUMM (3.8-5.5); Red Cell Distribution Width 16.2 % (9.3-17.3); White Blood Count 10.8 T/CUMM (4-12)
[2019-08-03] MEDS: MULTIVITAMIN (CENTRUM) TABLET PO SCH (08:02)
[2019-08-03] MEDS: COENZYME Q10 100 MG CAPSULE PO SCH (08:02)
[2019-08-03] MEDS: INSULIN LISPRO 100 UNIT/ML SUBCUT SCH ×4 (08:02→22:03)
[2019-08-03] MEDS: WHEAT DEXTRIN POWDER 244 GM BOTTLE PO SCH (08:02)
[2019-08-03] MEDS: NON-FORMULARY MEDICATION (Pravastatin 80 MG) PO SCH (08:02)
[2019-08-03] MEDS: FENOFIBRATE 145 MG TABLET PO SCH (08:03)
[2019-08-03] MEDS: ASCORBIC ACID 500 MG TABLET PO SCH ×2 (08:03→22:02)
[2019-08-03] MEDS: MAGNESIUM CHLORIDE 64 MG TABLET PO SCH ×2 (08:03→22:02)
[2019-08-03 08:53] LABS: Calcium 7.4 MG/DL (8.5-10.1); Osmolality,Calculated 281.7 MOS/KG (273-304)
[2019-08-03] MEDS: DILTIAZEM CD 180 MG CAPSULE PO SCH (09:01)
[2019-08-03] MEDS: PANTOPRAZOLE 40 MG VIAL IV SCH (09:02)
[2019-08-03 10:09] LABS: Hematocrit 21.3 VOL% (42.0-52.0)
[2019-08-03 10:45] LABS: Hemoglobin 6.3 GM/DL (14.0-18.0)
[2019-08-03 16:21] LABS: Hematocrit 21.9 VOL% (42.0-52.0); Hemoglobin 6.8 GM/DL (14.0-18.0)
[2019-08-03 20:38] LABS: Hematocrit 22.7 VOL% (42.0-52.0); Hemoglobin 7.3 GM/DL (14.0-18.0)
[2019-08-03] MEDS: MONTELUKAST 10 MG TABLET PO SCH (22:01)
[2019-08-03] MEDS: TAMSULOSIN 0.4 MG CAPSULE PO SCH (22:02)
[2019-08-03] MEDS: FLUTICASONE FUROATE VILANTEROL INH SCH (22:12)
[2019-08-04] MEDS: ALBUTEROL 2.5 MG/3 ML NEB RESP TX SCH ×2 (07:43→19:30)
[2019-08-04 08:17] LABS: Basophils % 0.5 % (0.0-0.8); Eosinophils # 0.2 10*3/uL (0.0-0.87); Eosinophils % 1.8 % (0.00-10.9); Hematocrit 22.9 VOL% (42.0-52.0); Hemoglobin 6.9 GM/DL (14.0-18.0); Immature Granulocytes % 0.7 %; Immature Granulocytes Absolute 0.06 #; Lymphocytes # 3.4 10*3/uL (1.4-4.0); Lymphocytes % 41.9 % (21.2-54.2); Mean Corpuscular HGB Conc 30.1 GM/DL (32-36); Mean Platelet Volume 9.7 FL (9.6-12.0); Monocytes % 6.6 % (1.7-12.7); Neutrophils % 48.5 % (38.7-73.9); Platelet Count 167 T/CUMM (130-400); Red Blood Count 2.41 MC/CUMM (3.8-5.5); Red Cell Distribution Width 16.6 % (9.3-17.3); White Blood Count 8.2 T/CUMM (4-12)
[2019-08-04 08:31] LABS: Calcium 7.7 MG/DL (8.5-10.1); Osmolality,Calculated 277.7 MOS/KG (273-304)
[2019-08-04] MEDS ORDERED: SODIUM CHLORIDE 0.9% 1,000 ML IV PRN ×2 (08:52→11:12)
[2019-08-04] MEDS: PANTOPRAZOLE 40 MG VIAL IV SCH (08:57)
[2019-08-04] MEDS: DILTIAZEM CD 180 MG CAPSULE PO SCH (08:58)
[2019-08-04] MEDS: MAGNESIUM CHLORIDE 64 MG TABLET PO SCH ×2 (08:59→21:39)
[2019-08-04] MEDS: ASCORBIC ACID 500 MG TABLET PO SCH ×2 (08:59→21:39)
[2019-08-04] MEDS: MULTIVITAMIN (CENTRUM) TABLET PO SCH (08:59)
[2019-08-04] MEDS: COENZYME Q10 100 MG CAPSULE PO SCH (08:59)
[2019-08-04] MEDS: FENOFIBRATE 145 MG TABLET PO SCH (08:59)
[2019-08-04] MEDS: WHEAT DEXTRIN POWDER 244 GM BOTTLE PO SCH (09:01)
[2019-08-04] MEDS: SODIUM CHLORIDE 0.9% 1,000 ML IV SCH ×3 (09:02→21:47)
[2019-08-04] MEDS: NON-FORMULARY MEDICATION (Pravastatin 80 MG) PO SCH (09:02)
[2019-08-04] MEDS: INSULIN LISPRO 100 UNIT/ML SUBCUT SCH ×4 (09:02→21:40)
[2019-08-04] MEDS ORDERED: ALUM/MAG/SIMETH/LIDO VISC 1:1 30 ML BOTTLE PO ONE (09:48)
[2019-08-04] MEDS ORDERED: NITROGLYCERIN SL 0.4 MG TABLET SL PRN (13:38)
[2019-08-04 14:12] LABS: Troponin I 0.029 NG/ML (0.00-0.045)
[2019-08-04 15:18] LABS: Troponin I 0.127 NG/ML (0.00-0.045)
[2019-08-04 18:28] LABS: Troponin I 0.329 NG/ML (0.00-0.045)
[2019-08-04 19:23] LABS: Hematocrit 25.7 VOL% (42.0-52.0)
[2019-08-04] MEDS: METOPROLOL SUCCINATE XL 50 MG TABLET PO SCH (21:40)
[2019-08-04] MEDS: TAMSULOSIN 0.4 MG CAPSULE PO SCH (21:40)
[2019-08-04] MEDS: MONTELUKAST 10 MG TABLET PO SCH (21:40)
[2019-08-04] MEDS: FLUTICASONE FUROATE VILANTEROL INH SCH (21:46)
[2019-08-05] MEDS: SODIUM CHLORIDE 0.9% 1,000 ML IV SCH ×3 (02:20→17:33)
[2019-08-05 06:52] LABS: Basophils % 0.4 % (0.0-0.8); Eosinophils # 0.2 10*3/uL (0.0-0.87); Eosinophils % 2.5 % (0.00-10.9); Hematocrit 27.5 VOL% (42.0-52.0); Hemoglobin 8.5 GM/DL (14.0-18.0); Immature Granulocytes % 0.9 %; Immature Granulocytes Absolute 0.08 #; Lymphocytes # 2.2 10*3/uL (1.4-4.0); Lymphocytes % 24.3 % (21.2-54.2); Mean Corpuscular HGB Conc 30.9 GM/DL (32-36); Mean Corpuscular Volume 93.9 FL (87-102); Mean Platelet Volume 10.8 FL (9.6-12.0); Monocytes % 7.4 % (1.7-12.7); Neutrophils % 64.5 % (38.7-73.9); Platelet Count 190 T/CUMM (130-400); Red Blood Count 2.93 MC/CUMM (3.8-5.5); Red Cell Distribution Width 17.9 % (9.3-17.3); White Blood Count 9.2 T/CUMM (4-12)
[2019-08-05 07:05] LABS: Calcium 8.1 MG/DL (8.5-10.1); Osmolality,Calculated 274.7 MOS/KG (273-304)
[2019-08-05] MEDS: ALBUTEROL 2.5 MG/3 ML NEB RESP TX SCH ×2 (07:19→19:21)
[2019-08-05] MEDS: LACTATED RINGERS 1,000 ML IV SCH (08:44)
[2019-08-05] MEDS: INSULIN LISPRO 100 UNIT/ML SUBCUT SCH ×4 (08:44→20:53)
[2019-08-05] MEDS: COENZYME Q10 100 MG CAPSULE PO SCH (08:45)
[2019-08-05] MEDS: WHEAT DEXTRIN POWDER 244 GM BOTTLE PO SCH (08:45)
[2019-08-05] MEDS: DILTIAZEM CD 180 MG CAPSULE PO SCH (08:45)
[2019-08-05] MEDS: MULTIVITAMIN (CENTRUM) TABLET PO SCH (08:46)
[2019-08-05] MEDS: FENOFIBRATE 145 MG TABLET PO SCH (08:46)
[2019-08-05] MEDS: NON-FORMULARY MEDICATION (Pravastatin 80 MG) PO SCH (08:46)
[2019-08-05] MEDS: ASCORBIC ACID 500 MG TABLET PO SCH ×2 (08:46→20:49)
[2019-08-05] MEDS: PANTOPRAZOLE 40 MG VIAL IV SCH (08:47)
[2019-08-05] MEDS: METOPROLOL SUCCINATE XL 50 MG TABLET PO SCH ×2 (08:47→20:54)
[2019-08-05] MEDS: MAGNESIUM CHLORIDE 64 MG TABLET PO SCH ×2 (08:47→20:49)
[2019-08-05] MEDS ORDERED: ETOMIDATE 20 MG/10 ML VIAL IV ONE (10:00)
[2019-08-05] MEDS ORDERED: LIDOCAINE 2% 5 ML VIAL ONE (10:00)
[2019-08-05] MEDS ORDERED: PHENYLEPHRINE 1 MG/10 ML SYRINGE IV ONE (10:00)
[2019-08-05] MEDS ORDERED: propofoL 200 MG/20 ML VIAL IV ONE (10:00)
[2019-08-05] MEDS ORDERED: GLUCAGON 1 MG VIAL IM PRN (12:41)
[2019-08-05] MEDS ORDERED: DEXTROSE 50% 25 GM/50 ML VIAL IV PRN (12:41)
[2019-08-05] MEDS: TAMSULOSIN 0.4 MG CAPSULE PO SCH (20:50)
[2019-08-05] MEDS: MONTELUKAST 10 MG TABLET PO SCH (20:50)
[2019-08-05] MEDS: FLUTICASONE FUROATE VILANTEROL INH SCH (20:53)
[2019-08-06] MEDS: SODIUM CHLORIDE 0.9% 1,000 ML IV SCH ×2 (03:32→12:56)
[2019-08-06 06:46] LABS: Basophils % 0.5 % (0.0-0.8); Eosinophils # 0.2 10*3/uL (0.0-0.87); Hematocrit 26.1 VOL% (42.0-52.0); Hemoglobin 7.9 GM/DL (14.0-18.0); Immature Granulocytes % 0.6 %; Immature Granulocytes Absolute 0.04 #; Lymphocytes # 1.4 10*3/uL (1.4-4.0); Lymphocytes % 20.6 % (21.2-54.2); Mean Corpuscular HGB Conc 30.3 GM/DL (32-36); Mean Corpuscular Volume 95.6 FL (87-102); Mean Platelet Volume 10.2 FL (9.6-12.0); Monocytes % 7.7 % (1.7-12.7); Neutrophils % 67.6 % (38.7-73.9); Platelet Count 186 T/CUMM (130-400); Red Blood Count 2.73 MC/CUMM (3.8-5.5); Red Cell Distribution Width 17.7 % (9.3-17.3); White Blood Count 6.6 T/CUMM (4-12)
[2019-08-06 07:10] LABS: Calcium 8.1 MG/DL (8.5-10.1); Osmolality,Calculated 276.5 MOS/KG (273-304)
[2019-08-06 07:16] LABS: Troponin I 0.047 NG/ML (0.00-0.045)
[2019-08-06] MEDS: ALBUTEROL 2.5 MG/3 ML NEB RESP TX SCH (07:16)
[2019-08-06 07:24] LABS: % Iron Saturation 7.2 % (18-50)
[2019-08-06 08:29] VITALS: BP 101/51
[2019-08-06] MEDS: INSULIN LISPRO 100 UNIT/ML SUBCUT SCH ×2 (08:50→12:56)
[2019-08-06] MEDS: LACTATED RINGERS 1,000 ML IV SCH (08:50)
[2019-08-06] MEDS: NON-FORMULARY MEDICATION (Pravastatin 80 MG) PO SCH (08:51)
[2019-08-06] MEDS: PANTOPRAZOLE 40 MG VIAL IV SCH (08:51)
[2019-08-06] MEDS: WHEAT DEXTRIN POWDER 244 GM BOTTLE PO SCH (08:51)
[2019-08-06] MEDS: METOPROLOL SUCCINATE XL 50 MG TABLET PO SCH (08:51)
[2019-08-06] MEDS: DILTIAZEM CD 180 MG CAPSULE PO SCH (09:35)
[2019-08-06] MEDS: COENZYME Q10 100 MG CAPSULE PO SCH (09:36)
[2019-08-06] MEDS: ASCORBIC ACID 500 MG TABLET PO SCH (09:36)
[2019-08-06] MEDS: FENOFIBRATE 145 MG TABLET PO SCH (09:36)
[2019-08-06] MEDS: MAGNESIUM CHLORIDE 64 MG TABLET PO SCH (09:36)
[2019-08-06] MEDS: MULTIVITAMIN (CENTRUM) TABLET PO SCH (09:36)
== END 2019-08-06 12:50 | disposition home or self-care (01) | DRG 813 ==
LOC: N.EDINP 09:18 → N.ED 09:18 → SUATTDRO 12:33 → N.TELES 13:43 → N.3E 14:27
PROVIDERS: ADMIT Family Medicine; ATTEND Internal Medicine

== ENCOUNTER 2019-08-07 12:46 | Inpatient (IN) ==
[2019-08-07 13:59] LABS: Basophils % 0.2 % (0.0-0.8); Eosinophils % 0.2 % (0.00-10.9); Hematocrit 29.1 VOL% (42.0-52.0); Hemoglobin 8.9 GM/DL (14.0-18.0); Immature Granulocytes % 0.8 %; Lymphocytes # 0.9 10*3/uL (1.4-4.0); Mean Corpuscular HGB Conc 30.6 GM/DL (32-36); Mean Corpuscular Volume 94.5 FL (87-102); Mean Platelet Volume 10.3 FL (9.6-12.0); Monocytes % 3.4 % (1.7-12.7); Neutrophils % 88.4 % (38.7-73.9); Platelet Count 191 T/CUMM (130-400); Red Blood Count 3.08 MC/CUMM (3.8-5.5); Red Cell Distribution Width 17.9 % (9.3-17.3); White Blood Count 13.3 T/CUMM (4-12)
[2019-08-07 14:03] LABS: Apearance,Urine CLEAR (Clear); Bilirubin,Urine Negative (Negative); Blood, Urine Negative (Negative); Glucose,Urine (UA) Negative (Negative); Ketones,Urine Negative (Negative); Nitrite,Urine Negative (Negative); Protein,Urine Negative; RBC,Urine 1 /HPF (0-4); Urine Color Yellow (Yellow); Urine Specific Gravity 1.012 (1.001-1.035); Urine Urobilinogen < 2.0 EU/DL (0.2-1.0); WBC,Urine 1 /HPF (0-6)
[2019-08-07 14:20] LABS: Ferritin 18.8 ng/ml (26-388)
[2019-08-07 14:21] LABS: Albumin 2.8 G/DL (3.4-5.0); Bilirubin,Total 0.6 MG/DL (0.2-1.0); Calcium 8.2 MG/DL (8.5-10.1); Osmolality,Calculated 267.2 MOS/KG (273-304); Total Protein 6.2 G/DL (6.4-8.3)
[2019-08-07] MEDS ORDERED: cefTRIAXone 1,000 MG in SODIUM CHLORIDE 0.9% 100 ML IV STA (15:00)
[2019-08-07] MEDS ORDERED: SODIUM CHLORIDE 0.9% 2,850 ML IV ONE (15:21)
[2019-08-07] MEDS ORDERED: GLUCAGON 1 MG VIAL IM PRN (15:24)
[2019-08-07] MEDS ORDERED: ONDANSETRON 4 MG/2 ML VIAL IV PRN (15:24)
[2019-08-07] MEDS ORDERED: ACETAMINOPHEN 325 MG TABLET PO PRN (15:24)
[2019-08-07] MEDS ORDERED: guaiFENesin/DM ER 600-30 MG TABLET PO PRN (15:24)
[2019-08-07] MEDS ORDERED: DEXTROSE 10% 250 ML BAG IV PRN (15:24)
[2019-08-07] MEDS ORDERED: ALBUTEROL/IPRATROPIUM 3 ML NEB RESP TX PRN (15:24)
[2019-08-07] MEDS: SODIUM CHLORIDE 0.9% 1,000 ML IV SCH (16:28)
[2019-08-07] MEDS: AZITHROMYCIN INJ 500 MG in SODIUM CHLORIDE 0.9% 250 ML IV SCH (16:56)
[2019-08-07] MEDS: ENOXAPARIN 40 MG/0.4 ML SYRINGE SUBCUT SCH (16:56)
[2019-08-07] MEDS ORDERED: ACETAMINOPHEN 325 MG TABLET PO ONE (18:21)
[2019-08-07] MEDS: INSULIN LISPRO 100 UNIT/ML SUBCUT SCH ×2 (18:35→20:10)
[2019-08-07] MEDS ORDERED: SODIUM CHLORIDE 0.9% 1,000 ML IV ONE (23:02)
[2019-08-08] MEDS: SODIUM CHLORIDE 0.9% 1,000 ML IV SCH ×3 (00:32→17:20)
[2019-08-08 01:23] LABS: Basophils % 0.2 % (0.0-0.8); Hemoglobin 7.5 GM/DL (14.0-18.0); Immature Granulocytes % 1.2 %; Lymphocytes # 0.7 10*3/uL (1.4-4.0); Lymphocytes % 4.1 % (21.2-54.2); Mean Corpuscular HGB Conc 31.3 GM/DL (32-36); Mean Corpuscular Volume 93.4 FL (87-102); Mean Platelet Volume 10.2 FL (9.6-12.0); Neutrophils % 91.5 % (38.7-73.9); Platelet Count 165 T/CUMM (130-400); Red Blood Count 2.57 MC/CUMM (3.8-5.5); Red Cell Distribution Width 17.8 % (9.3-17.3); White Blood Count 16.8 T/CUMM (4-12)
[2019-08-08 01:41] LABS: Albumin 2.2 G/DL (3.4-5.0); Bilirubin,Total 0.7 MG/DL (0.2-1.0); Calcium 7.8 MG/DL (8.5-10.1); Osmolality,Calculated 269.2 MOS/KG (273-304); Total Protein 5.2 G/DL (6.4-8.3)
[2019-08-08 02:08] LABS: Band Neutrophils 5 % (0-10); Lymphocytes 4 % (20-55); Segmented Neutrophils 89 % (50-85); Total Cells Counted 100
[2019-08-08 02:09] LABS: Anisocytosis 1+; Hypochromasia Slight; Platelet Estimate Normal; Polychromasia Few
[2019-08-08 02:10] LABS: Microcytosis 1+
[2019-08-08] MEDS ORDERED: ENOXAPARIN 60 MG/0.6 ML SYRINGE SUBCUT ONE (02:10)
[2019-08-08] MEDS ORDERED: SODIUM CHLORIDE 0.9% 500 ML IV ONE ×2 (02:23→17:21)
[2019-08-08] MEDS ORDERED: MAGNESIUM SULF RIDER 2 GM in PREMIX 1 EACH IV PRN (07:03)
[2019-08-08] MEDS ORDERED: MAGNESIUM SULF RIDER 4 GM in PREMIX 1 EACH IV PRN (07:03)
[2019-08-08] MEDS ORDERED: POTASSIUM CHLORIDE RIDER 10 MEQ in PREMIX 1 EACH IV PRN (07:03)
[2019-08-08] MEDS: INSULIN LISPRO 100 UNIT/ML SUBCUT SCH ×4 (10:00→21:34)
[2019-08-08] MEDS: PANTOPRAZOLE 40 MG TABLET PO SCH (10:00)
[2019-08-08] MEDS: PIPERACILLIN/TAZOBACTAM 3,375 MG in SODIUM CHLORIDE 0.9% 100 ML IV SCH ×2 (11:49→21:35)
[2019-08-08] MEDS: ASPIRIN EC 81 MG TABLET PO SCH (15:42)
[2019-08-08] MEDS: ASCORBIC ACID 500 MG TABLET PO SCH ×2 (15:42→20:25)
[2019-08-08] MEDS: ENOXAPARIN 40 MG/0.4 ML SYRINGE SUBCUT SCH (15:42)
[2019-08-08] MEDS: METOPROLOL TARTRATE 5 MG/5 ML VIAL IV SCH ×3 (16:05→16:46)
[2019-08-08] MEDS ORDERED: NOREPINEPHRINE 8 MG in SODIUM CHLORIDE 0.9% 242 ML IV PRN (16:38)
[2019-08-08] MEDS: AZITHROMYCIN INJ 500 MG in SODIUM CHLORIDE 0.9% 250 ML IV SCH (17:22)
[2019-08-08] MEDS: VANCOMYCIN INJ 1,500 MG in SODIUM CHLORIDE 0.9% 500 ML IV SCH (18:26)
[2019-08-08 18:30] LABS: Basophils % 0.3 % (0.0-0.8); Hematocrit 24.9 VOL% (42.0-52.0); Hemoglobin 7.4 GM/DL (14.0-18.0); Immature Granulocytes % 0.8 %; Immature Granulocytes Absolute 0.07 #; Lymphocytes # 0.8 10*3/uL (1.4-4.0); Lymphocytes % 9.4 % (21.2-54.2); Mean Corpuscular HGB Conc 29.7 GM/DL (32-36); Mean Platelet Volume 11.6 FL (9.6-12.0); Monocytes % 2.9 % (1.7-12.7); Neutrophils % 86.6 % (38.7-73.9); Platelet Count 163 T/CUMM (130-400); Red Blood Count 2.62 MC/CUMM (3.8-5.5); Red Cell Distribution Width 17.5 % (9.3-17.3); White Blood Count 8.7 T/CUMM (4-12)
[2019-08-08] MEDS ORDERED: SODIUM CHLORIDE 0.9% 1,000 ML IV PRN (18:35)
[2019-08-08 18:40] LABS: Apearance,Urine Slightly Hazy (Clear); Bacteria,Urine Occasional /HPF (Few); Bilirubin,Urine Negative (Negative); Blood, Urine Small mg/dL (Negative); Glucose,Urine (UA) Negative (Negative); Hyaline Casts,Urine 6 /LPF (0-3); Ketones,Urine Negative (Negative); Mucus,Urine Occasional /LPF (Occasional); Nitrite,Urine Negative (Negative); Protein,Urine 30 MG/DL; RBC,Urine 6 /HPF (0-4); Squamous Epithelial Cell,Urine Occasional /HPF (0-10); Urine Color Yellow (Yellow); Urine Specific Gravity 1.018 (1.001-1.035); Urine Urobilinogen < 2.0 EU/DL (0.2-1.0); WBC,Urine 5 /HPF (0-6)
[2019-08-08 19:26] LABS: Band Neutrophils 4 % (0-10); Lymphocytes 4 % (20-55); Macrocytosis 2+; Polychromasia 1+; Segmented Neutrophils 88 % (50-85); Total Cells Counted 100
[2019-08-08 19:27] LABS: Giant Platelets Few; Microcytosis 1+; Platelet Estimate Adequate
[2019-08-08] MEDS: SIMVASTATIN 20 MG TABLET PO SCH (20:25)
[2019-08-08] MEDS ORDERED: DILTIAZEM 25 MG/5 ML VIAL IV ONE ×2 (20:44→20:47)
[2019-08-08] MEDS ORDERED: METOPROLOL TARTRATE 25 MG TABLET PO SCH ×2 (21:00)
[2019-08-08] MEDS ORDERED: DILTIAZEM 30 MG TABLET PO SCH (21:00)
[2019-08-08] MEDS ORDERED: dilTIAZem Drip 125 MG/125 ML PREMIX IV SCH (21:00)
[2019-08-09] MEDS: PIPERACILLIN/TAZOBACTAM 3,375 MG in SODIUM CHLORIDE 0.9% 100 ML IV SCH ×3 (05:25→21:13)
[2019-08-09] MEDS: SODIUM CHLORIDE 0.9% 1,000 ML IV SCH (05:25)
[2019-08-09 06:38] LABS: Basophils % 0.2 % (0.0-0.8); Eosinophils % 0.5 % (0.00-10.9); Hematocrit 26.1 VOL% (42.0-52.0); Immature Granulocytes Absolute 0.06 #; Lymphocytes # 0.7 10*3/uL (1.4-4.0); Lymphocytes % 11.2 % (21.2-54.2); Mean Corpuscular HGB Conc 30.7 GM/DL (32-36); Mean Corpuscular Volume 93.9 FL (87-102); Mean Platelet Volume 11.3 FL (9.6-12.0); Monocytes % 3.2 % (1.7-12.7); Neutrophils % 83.9 % (38.7-73.9); Platelet Count 154 T/CUMM (130-400); Red Blood Count 2.78 MC/CUMM (3.8-5.5); Red Cell Distribution Width 17.3 % (9.3-17.3); White Blood Count 6.3 T/CUMM (4-12)
[2019-08-09 06:57] LABS: Calcium 7.5 MG/DL (8.5-10.1); Osmolality,Calculated 271.1 MOS/KG (273-304)
[2019-08-09 07:37] LABS: Bilirubin,Total 0.4 MG/DL (0.2-1.0); Calcium 7.5 MG/DL (8.5-10.1); Osmolality,Calculated 269.2 MOS/KG (273-304); Total Protein 5.1 G/DL (6.4-8.3)
[2019-08-09] MEDS: INSULIN LISPRO 100 UNIT/ML SUBCUT SCH ×4 (08:35→21:17)
[2019-08-09] MEDS ORDERED: DILTIAZEM 30 MG TABLET PO PRN (08:35)
[2019-08-09] MEDS: PANTOPRAZOLE 40 MG TABLET PO SCH (08:42)
[2019-08-09] MEDS: METOPROLOL TARTRATE 25 MG TABLET PO SCH ×2 (08:42→21:13)
[2019-08-09] MEDS: ASPIRIN EC 81 MG TABLET PO SCH (08:42)
[2019-08-09] MEDS: ASCORBIC ACID 500 MG TABLET PO SCH ×2 (08:43→21:13)
[2019-08-09] MEDS ORDERED: SODIUM CHLORIDE 0.9% 1,000 ML IV SCH (09:30)
[2019-08-09] MEDS ORDERED: SODIUM CHLORIDE 0.9% 1,000 ML IV PRN (09:58)
[2019-08-09] MEDS ORDERED: FUROSEMIDE 20 MG/2 ML VIAL IV ONE (10:10)
[2019-08-09 13:20] LABS: Band Neutrophils 13 % (0-10); Eosinophils 1 % (0-10); Lymphocytes 8 % (20-55); Metamyelocytes 1 %; Platelet Estimate Adequate; Polychromasia Slight; Segmented Neutrophils 71 % (50-85); Total Cells Counted 100
[2019-08-09 13:22] LABS: Hypochromasia 1+; Schistocytes Slight
[2019-08-09] MEDS: ENOXAPARIN 40 MG/0.4 ML SYRINGE SUBCUT SCH (17:26)
[2019-08-09] MEDS: VANCOMYCIN INJ 1,500 MG in SODIUM CHLORIDE 0.9% 500 ML IV SCH (17:27)
[2019-08-09] MEDS ORDERED: METOPROLOL TARTRATE 25 MG TABLET PO SCH (21:00)
[2019-08-09] MEDS: SIMVASTATIN 20 MG TABLET PO SCH (21:13)
[2019-08-10] MEDS: PIPERACILLIN/TAZOBACTAM 3,375 MG in SODIUM CHLORIDE 0.9% 100 ML IV SCH ×3 (03:52→21:57)
[2019-08-10 05:59] LABS: Basophils % 0.2 % (0.0-0.8); Eosinophils # 0.1 10*3/uL (0.0-0.87); Eosinophils % 1.7 % (0.00-10.9); Hematocrit 27.9 VOL% (42.0-52.0); Hemoglobin 8.6 GM/DL (14.0-18.0); Immature Granulocytes % 1.4 %; Immature Granulocytes Absolute 0.08 #; Lymphocytes # 0.9 10*3/uL (1.4-4.0); Lymphocytes % 15.4 % (21.2-54.2); Mean Corpuscular HGB Conc 30.8 GM/DL (32-36); Mean Corpuscular Volume 93.3 FL (87-102); Mean Platelet Volume 11.5 FL (9.6-12.0); Neutrophils % 74.3 % (38.7-73.9); Platelet Count 155 T/CUMM (130-400); Red Blood Count 2.99 MC/CUMM (3.8-5.5); Red Cell Distribution Width 17.1 % (9.3-17.3); White Blood Count 5.9 T/CUMM (4-12)
[2019-08-10 06:33] LABS: Albumin 2.1 G/DL (3.4-5.0); Bilirubin,Total 0.6 MG/DL (0.2-1.0); Calcium 7.6 MG/DL (8.5-10.1); Calcium 7.8 MG/DL (8.5-10.1); Osmolality,Calculated 273.1 MOS/KG (273-304)
[2019-08-10 06:37] LABS: Band Neutrophils 8 % (0-10); Eosinophils 1 % (0-10); Hypochromasia 1+; Lymphocytes 12 % (20-55); Microcytosis 1+; Ovalocytes Slight; Segmented Neutrophils 76 % (50-85); Total Cells Counted 100
[2019-08-10 06:38] LABS: Platelet Estimate Adequate
[2019-08-10] MEDS ORDERED: POTASSIUM CHLORIDE 20 MEQ TABLET PO ONE (07:24)
[2019-08-10] MEDS: PANTOPRAZOLE 40 MG TABLET PO SCH (09:29)
[2019-08-10] MEDS: ASCORBIC ACID 500 MG TABLET PO SCH ×2 (09:29→20:40)
[2019-08-10] MEDS: ASPIRIN EC 81 MG TABLET PO SCH (09:29)
[2019-08-10] MEDS: METOPROLOL TARTRATE 25 MG TABLET PO SCH ×2 (09:31→20:40)
[2019-08-10] MEDS: INSULIN LISPRO 100 UNIT/ML SUBCUT SCH ×4 (09:32→20:36)
[2019-08-10] MEDS ORDERED: FLUCONAZOLE INJ 200 MG in PREMIX 1 EACH IV ONE (12:52)
[2019-08-10] MEDS: ENOXAPARIN 40 MG/0.4 ML SYRINGE SUBCUT SCH (14:37)
[2019-08-10] MEDS: VANCOMYCIN INJ 1,500 MG in SODIUM CHLORIDE 0.9% 500 ML IV SCH (17:06)
[2019-08-10] MEDS ORDERED: DOCOSANOL 10% CREAM 2 GM TUBE TOP PRN (17:41)
[2019-08-10] MEDS: LACTOBACILLUS ACIDOPHILUS/BULGARICUS CHEW TABLET PO SCH (20:40)
[2019-08-10] MEDS: SIMVASTATIN 20 MG TABLET PO SCH (20:40)
[2019-08-11] MEDS: PIPERACILLIN/TAZOBACTAM 3,375 MG in SODIUM CHLORIDE 0.9% 100 ML IV SCH (05:52)
[2019-08-11] MEDS: INSULIN LISPRO 100 UNIT/ML SUBCUT SCH ×4 (07:33→20:45)
[2019-08-11] MEDS ORDERED: DEXTROSE 50% 25 GM/50 ML VIAL IV PRN (07:47)
[2019-08-11 08:00] LABS: Basophils % 0.4 % (0.0-0.8); Eosinophils # 0.2 10*3/uL (0.0-0.87); Eosinophils % 3.5 % (0.00-10.9); Hematocrit 28.9 VOL% (42.0-52.0); Immature Granulocytes % 0.8 %; Immature Granulocytes Absolute 0.04 #; Lymphocytes # 1.1 10*3/uL (1.4-4.0); Lymphocytes % 22.8 % (21.2-54.2); Mean Corpuscular HGB Conc 31.1 GM/DL (32-36); Mean Corpuscular Volume 92.6 FL (87-102); Mean Platelet Volume 10.8 FL (9.6-12.0); Monocytes % 7.2 % (1.7-12.7); Neutrophils % 65.3 % (38.7-73.9); Platelet Count 199 T/CUMM (130-400); Red Blood Count 3.12 MC/CUMM (3.8-5.5); Red Cell Distribution Width 17.2 % (9.3-17.3); White Blood Count 4.9 T/CUMM (4-12)
[2019-08-11 08:19] LABS: Calcium 8.4 MG/DL (8.5-10.1); Osmolality,Calculated 271.8 MOS/KG (273-304)
[2019-08-11 08:31] LABS: Atypical Lymphocytes Few; Eosinophils 4 % (0-10); Hypochromasia 1+; Lymphocytes 21 % (20-55); Microcytosis 1+; Segmented Neutrophils 72 % (50-85); Total Cells Counted 100
[2019-08-11] MEDS: METOPROLOL TARTRATE 25 MG TABLET PO SCH ×2 (09:10→20:39)
[2019-08-11] MEDS: ASPIRIN EC 81 MG TABLET PO SCH (09:10)
[2019-08-11] MEDS: PANTOPRAZOLE 40 MG TABLET PO SCH (09:10)
[2019-08-11] MEDS: LACTOBACILLUS ACIDOPHILUS/BULGARICUS CHEW TABLET PO SCH ×2 (09:10→20:39)
[2019-08-11] MEDS: ASCORBIC ACID 500 MG TABLET PO SCH ×2 (09:10→20:39)
[2019-08-11] MEDS: FLUCONAZOLE INJ 100 MG in IV BAG 1 EACH IV SCH (09:10)
[2019-08-11] MEDS ORDERED: ALBUTEROL/IPRATROPIUM 3 ML NEB RESP TX PRN (09:57)
[2019-08-11] MEDS: NAFCILLIN 2,000 MG in SODIUM CHLORIDE 0.9% 100 ML IV SCH ×3 (11:53→20:40)
[2019-08-11] MEDS: ALBUTEROL/IPRATROPIUM 3 ML NEB RESP TX SCH ×2 (12:27→20:42)
[2019-08-11] MEDS: ENOXAPARIN 40 MG/0.4 ML SYRINGE SUBCUT SCH (16:38)
[2019-08-11] MEDS: SIMVASTATIN 20 MG TABLET PO SCH (20:39)
[2019-08-12] MEDS: NAFCILLIN 2,000 MG in SODIUM CHLORIDE 0.9% 100 ML IV SCH ×6 (00:11→20:47)
[2019-08-12] MEDS: ALBUTEROL/IPRATROPIUM 3 ML NEB RESP TX SCH ×4 (03:11→19:21)
[2019-08-12 05:36] LABS: Basophils % 0.6 % (0.0-0.8); Eosinophils # 0.2 10*3/uL (0.0-0.87); Eosinophils % 5.7 % (0.00-10.9); Hematocrit 28.4 VOL% (42.0-52.0); Hemoglobin 8.3 GM/DL (14.0-18.0); Immature Granulocytes % 0.6 %; Immature Granulocytes Absolute 0.02 #; Lymphocytes # 1.4 10*3/uL (1.4-4.0); Lymphocytes % 38.4 % (21.2-54.2); Mean Corpuscular HGB Conc 29.2 GM/DL (32-36); Mean Corpuscular Volume 95.3 FL (87-102); Mean Platelet Volume 10.8 FL (9.6-12.0); Monocytes % 8.8 % (1.7-12.7); Neutrophils % 45.9 % (38.7-73.9); Platelet Count 219 T/CUMM (130-400); Red Blood Count 2.98 MC/CUMM (3.8-5.5); Red Cell Distribution Width 17.2 % (9.3-17.3); White Blood Count 3.5 T/CUMM (4-12)
[2019-08-12 06:01] LABS: Calcium 8.2 MG/DL (8.5-10.1); Osmolality,Calculated 275.5 MOS/KG (273-304)
[2019-08-12 06:12] LABS: Eosinophils 10 % (0-10); Lymphocytes 39 % (20-55); Segmented Neutrophils 45 % (50-85); Total Cells Counted 100
[2019-08-12 06:13] LABS: Atypical Lymphocytes Few; Hypochromasia 1+; Microcytosis Slight; Ovalocytes Slight; Platelet Estimate Adequate
[2019-08-12] MEDS: POTASSIUM CHLORIDE 20 MEQ TABLET PO PRN (08:53)
[2019-08-12] MEDS: ASPIRIN EC 81 MG TABLET PO SCH (08:53)
[2019-08-12] MEDS: PANTOPRAZOLE 40 MG TABLET PO SCH (08:54)
[2019-08-12] MEDS: METOPROLOL TARTRATE 25 MG TABLET PO SCH ×2 (08:54→20:46)
[2019-08-12] MEDS: ASCORBIC ACID 500 MG TABLET PO SCH ×2 (08:54→20:47)
[2019-08-12] MEDS: INSULIN LISPRO 100 UNIT/ML SUBCUT SCH ×4 (09:25→20:53)
[2019-08-12] MEDS: POTASSIUM CHLORIDE 10 MEQ TABLET PO SCH (09:51)
[2019-08-12] MEDS: LACTOBACILLUS ACIDOPHILUS/BULGARICUS CHEW TABLET PO SCH ×2 (09:52→20:45)
[2019-08-12] MEDS: FLUCONAZOLE INJ 100 MG in IV BAG 1 EACH IV SCH (10:09)
[2019-08-12] MEDS: ENOXAPARIN 40 MG/0.4 ML SYRINGE SUBCUT SCH (16:13)
[2019-08-12] MEDS: SIMVASTATIN 20 MG TABLET PO SCH (20:47)
[2019-08-13] MEDS: ALBUTEROL/IPRATROPIUM 3 ML NEB RESP TX SCH ×4 (00:10→19:33)
[2019-08-13] MEDS: NAFCILLIN 2,000 MG in SODIUM CHLORIDE 0.9% 100 ML IV SCH ×6 (00:13→20:50)
[2019-08-13 05:11] LABS: Basophils % 0.4 % (0.0-0.8); Eosinophils # 0.3 10*3/uL (0.0-0.87); Eosinophils % 5.6 % (0.00-10.9); Hematocrit 28.5 VOL% (42.0-52.0); Hemoglobin 8.5 GM/DL (14.0-18.0); Immature Granulocytes % 0.6 %; Immature Granulocytes Absolute 0.03 #; Lymphocytes # 1.4 10*3/uL (1.4-4.0); Lymphocytes % 28.2 % (21.2-54.2); Mean Corpuscular HGB Conc 29.8 GM/DL (32-36); Mean Corpuscular Volume 94.7 FL (87-102); Mean Platelet Volume 10.5 FL (9.6-12.0); Neutrophils % 58.2 % (38.7-73.9); Platelet Count 280 T/CUMM (130-400); Red Blood Count 3.01 MC/CUMM (3.8-5.5); Red Cell Distribution Width 17.4 % (9.3-17.3); White Blood Count 4.9 T/CUMM (4-12)
[2019-08-13 05:42] LABS: Calcium 8.1 MG/DL (8.5-10.1); Osmolality,Calculated 280.1 MOS/KG (273-304)
[2019-08-13] MEDS ORDERED: FUROSEMIDE 40 MG/4 ML VIAL IV ONE (07:56)
[2019-08-13] MEDS ORDERED: FUROSEMIDE 40 MG/4 ML VIAL IV SCH (08:00)
[2019-08-13] MEDS: LACTOBACILLUS ACIDOPHILUS/BULGARICUS CHEW TABLET PO SCH ×2 (08:22→21:26)
[2019-08-13] MEDS: POTASSIUM CHLORIDE 10 MEQ TABLET PO SCH (08:24)
[2019-08-13] MEDS: ASCORBIC ACID 500 MG TABLET PO SCH ×2 (08:24→20:49)
[2019-08-13] MEDS: PANTOPRAZOLE 40 MG TABLET PO SCH (08:24)
[2019-08-13] MEDS: ASPIRIN EC 81 MG TABLET PO SCH (08:25)
[2019-08-13] MEDS: SPIRONOLACTONE 50 MG TABLET PO SCH (08:48)
[2019-08-13] MEDS: METOPROLOL TARTRATE 50 MG TABLET PO SCH ×2 (08:48→20:49)
[2019-08-13] MEDS ORDERED: DILTIAZEM CD 120 MG CAPSULE PO SCH (09:00)
[2019-08-13] MEDS ORDERED: SPIRONOLACTONE 25 MG TABLET PO SCH (09:00)
[2019-08-13] MEDS: FLUCONAZOLE INJ 100 MG in IV BAG 1 EACH IV SCH (09:48)
[2019-08-13] MEDS: INSULIN LISPRO 100 UNIT/ML SUBCUT SCH ×4 (09:50→20:50)
[2019-08-13] MEDS: GENTAMICIN INJ 420 MG in SODIUM CHLORIDE 0.9% 100 ML IV SCH (12:01)
[2019-08-13] MEDS: ENOXAPARIN 40 MG/0.4 ML SYRINGE SUBCUT SCH (17:08)
[2019-08-13] MEDS: MAGNESIUM CHLORIDE 64 MG TABLET PO SCH (20:49)
[2019-08-13] MEDS ORDERED: TAMSULOSIN 0.4 MG CAPSULE PO SCH (21:00)
[2019-08-13] MEDS ORDERED: MONTELUKAST 10 MG TABLET PO SCH (21:00)
[2019-08-14] MEDS: NAFCILLIN 2,000 MG in SODIUM CHLORIDE 0.9% 100 ML IV SCH ×3 (00:12→08:11)
[2019-08-14] MEDS: ALBUTEROL/IPRATROPIUM 3 ML NEB RESP TX SCH ×2 (01:10→07:29)
[2019-08-14 05:59] LABS: Basophils % 0.4 % (0.0-0.8); Eosinophils # 0.3 10*3/uL (0.0-0.87); Eosinophils % 6.1 % (0.00-10.9); Hematocrit 28.2 VOL% (42.0-52.0); Hemoglobin 8.4 GM/DL (14.0-18.0); Immature Granulocytes % 0.6 %; Immature Granulocytes Absolute 0.03 #; Lymphocytes # 1.6 10*3/uL (1.4-4.0); Lymphocytes % 30.6 % (21.2-54.2); Mean Corpuscular HGB Conc 29.8 GM/DL (32-36); Mean Corpuscular Volume 93.7 FL (87-102); Mean Platelet Volume 10.7 FL (9.6-12.0); Monocytes % 6.7 % (1.7-12.7); Neutrophils % 55.6 % (38.7-73.9); Platelet Count 300 T/CUMM (130-400); Red Blood Count 3.01 MC/CUMM (3.8-5.5); Red Cell Distribution Width 17.7 % (9.3-17.3); White Blood Count 5.1 T/CUMM (4-12)
[2019-08-14 06:14] LABS: Calcium 8.4 MG/DL (8.5-10.1)
[2019-08-14 06:15] LABS: Osmolality,Calculated 275.4 MOS/KG (273-304)
[2019-08-14] MEDS: LACTOBACILLUS ACIDOPHILUS/BULGARICUS CHEW TABLET PO SCH (08:10)
[2019-08-14] MEDS: MAGNESIUM CHLORIDE 64 MG TABLET PO SCH (08:10)
[2019-08-14] MEDS: SPIRONOLACTONE 50 MG TABLET PO SCH (08:10)
[2019-08-14] MEDS: ASPIRIN EC 81 MG TABLET PO SCH (08:11)
[2019-08-14] MEDS: POTASSIUM CHLORIDE 10 MEQ TABLET PO SCH (08:11)
[2019-08-14] MEDS: METOPROLOL TARTRATE 50 MG TABLET PO SCH (08:11)
[2019-08-14] MEDS: ASCORBIC ACID 500 MG TABLET PO SCH (08:11)
[2019-08-14] MEDS: PANTOPRAZOLE 40 MG TABLET PO SCH (08:11)
[2019-08-14] MEDS: POTASSIUM CHLORIDE 20 MEQ TABLET PO PRN ×2 (08:13→10:19)
[2019-08-14] MEDS: INSULIN LISPRO 100 UNIT/ML SUBCUT SCH ×2 (08:14→13:40)
[2019-08-14] MEDS ORDERED: FUROSEMIDE 40 MG TABLET PO SCH (09:00)
[2019-08-14 11:44] VITALS: BP 114/67
[2019-08-14] MEDS: GENTAMICIN INJ 420 MG in SODIUM CHLORIDE 0.9% 100 ML IV SCH (12:10)
== END 2019-08-14 13:15 | disposition home health service (06) | DRG 871 ==
LOC: EDBD → EDUNIT# → N.ED 12:46 → SUATTDRO 15:24 → N.EDINP 15:24 → N.3E 17:52 → N.ICU 08-08 16:49 → N.TELES 08-09 14:41
PROVIDERS: ADMIT Internal Medicine; ATTEND Internal Medicine